=== PATIENT | female | born 1985 | race Caucasian/White ===

== ENCOUNTER 2020-07-05 19:56 | Emergency (ER) | payer OTHER, SELFPAY ==
[2020-07-05 20:00] VITALS: BP 166/89; PULSE 124; TEMP 37.9; O2SAT 94; BMI 42.3
[2020-07-05 20:05] VITALS: O2SAT 94
--- NOTE | 2020-07-05 20:13 | DI.RAD.S_ITS ---
PROCEDURE: XR CHEST 1V INDICATIONS: sob, cough, fever TECHNIQUE: One view of the chest was acquired. COMPARISON: None. FINDINGS: Surgical changes and devices: None. Lungs and pleura: Patchy bilateral airspace ground-glass and consolidative nodular opacities. No pleural effusions or pneumothorax. Mediastinum: Mediastinal contours appear normal. Heart size is normal. Bones and chest wall: No suspicious bony lesions. Overlying soft tissues appear unremarkable. IMPRESSION: Bilateral patchy ground-glass and consolidative consolidative nodular opacities. Findings more pronounced on the right and are most likely reflective of multifocal pneumonia. Follow-up to resolution is recommended. Dictated by: Rene Gray M.D. on 07/05/2020 at 20:59 Approved by: Rene Gray M.D. on 07/05/2020 at 20:59
--- NOTE | 2020-07-05 20:23 | ED_ITS ---
HPI - Chest Pain General Chief Complaint: Chest Pain Stated Complaint: states Covid +, Chest Pain, SOB Time Seen by Provider: 07/05/20 20:03 Source: patient Mode of arrival: Ambulatory Limitations: no limitations History of Present Illness HPI narrative: 34F nonsmoker with a history of anxiety presents with increasing harsh cough and fever of 101F. She started having symptoms on Tuesday and was diagnosed with COVID on Tuesday. She thinks she was probably exposed last week while visiting [place]. She is not dizzy or lightheaded. She's had nausea, and diarrhea, but no vomiting. She has some burning chest pain which flairs up after coughing and mellows out after coughing. She has been taking tylenol and motrin as well as immodium. She is otherwise well. MD complaint: chest pain Onset (ago): day(s) Duration: constant Pain location: substernal Severity: moderate Quality: sharp Pain radiation: none Exacerbating factors: inspiration Associated symptoms: nausea and dyspnea Related Data On Oral Contraceptives: No Previous Rx's Medication Instructions Recorded benzonatate [Tessalon Perles] 100 mg PO TID PRN #14 cap 07/05/20 promethazine-codeine 5 ml PO Q4-6H PRN #473 ml 07/05/20 Allergies Allergy/AdvReac Type Severity Reaction Status Date / Time olanzapine [From Zyprexa] Allergy Verified 07/05/20 20:09 Review of Systems Constitutional Constitutional: Reports chills, Reports fatigue, Reports fever(s), Denies frequent falls, Denies lethargy and Denies weakness Eyes Eyes: Denies change in vision, Denies eye discharge, Denies irritation and Denies loss of vision ENT Ears, Nose, Mouth, and Throat: Denies change in voice, Denies dizziness, Denies neck pain, Denies sore throat and Denies throat swelling Cardiovascular Cardiovascular: Reports chest pain, Denies irregular heart rhythm, Denies li ghtheadedness, Denies palpitations, Reports dyspnea, Denies dyspnea on exertion and Denies orthopnea Respiratory Respiratory: Reports cough, Reports dyspnea, Denies dyspnea on exertion and Denies wheezing Gastrointestinal Gastrointestinal: Denies abdominal pain, Denies change in bowel habits, Reports diarrhea, Reports nausea and Denies vomiting Musculoskeletal Musculoskeletal: Denies neck pain and Denies numbness Integumentary/Breasts Skin/Breast: Denies pruritus, Denies erythema, Denies rash and Denies wounds Neurologic Neurologic: Denies behavioral changes, Denies confusion, Denies dizziness, Denies frequent falls, Denies loss of vision, Denies numbness and Denies weakness Psychiatric Psychiatric: Denies anxiety, Denies behavioral changes, Denies confusion, Denies depression, Denies homicidal ideation and Denies suicidal ideation Endocrine Endocrine: Reports fatigue, Denies flushing and Denies palpitations Hematologic/Lymphatic Hematologic/Lymphatic: Denies easy bruising Allergic/Immunologic Allergic/Immunologic: Denies urticaria, Denies throat swelling and Denies wheezing Patient History Social History Smoking Status: Unknown if ever smoked Smoking Status: Unknown if ever smoked alcohol intake frequency: holidays/special occasions only Substance Use Type: does not use Exam Narrative Exam Narrative: GENERAL: [34] year old patient appears stated age. Well- nourished, well-developed patient, in mild distress. HEAD: Atraumatic. Normocephalic. EYES: Pupils equal round and reactive. Extraocular motions intact. No scleral icterus. No injection or drainage. ENT: Nose without bleeding, purulent drainage. Throat without erythema, tonsillar hypertrophy or exudate. Airway patent. NECK: Trachea midline. Non tender CARDIOVASCULAR: Tachycardic but regular rhythm without murmurs, gallops, or rubs. RESPIRATORY: Crackles in B/L bases. R>L. No use of accessory muscles or intercostals. No conversational dyspnea or other evidence of increased work of breathing. RA SpO2 92-95% GASTROINTESTINAL: Abdomen soft, non-tender, nondistended. EXTREMITIES: No edema or joint tenderness. BACK: Nontender without deformity or crepitance. No flank tenderness. NEURO: AOx3. SKIN: No rash or erythema of visible areas Initial Vital Signs Initial Vital Signs: Vital Signs Temperature 100.2 F H 07/05/20 20:00 Pulse Rate 124 H 07/05/20 20:00 Blood Pressure 166/89 H 07/05/20 20:00 Pulse Oximetry 94 07/05/20 20:00 Course Orders Ordered: ED Orders 07/05/20 20:13 XR chest 1V Stat 07/05/20 20:14 C-Reactive Protein Quant Stat Complete Blood Count AUTO DIFF Stat D Dimer Stat Ferritin Stat Lactate (Lactic Acid) Stat Lactate Dehydrogenase Stat Procalcitonin Stat EKG-12 Lead Stat 07/05/20 20:45 Blood Culture Stat Acetaminophen/Codeine Phosphate (Acetaminophen/Codeine Soln 5 Ml Solution) 10 ml PO NOW ONE Stop: 07/05/20 21:54 Discontinued Medications Sodium Chloride (Normal Saline 0.9%) 500 mls @ 1,000 mls/hr IV BOLUS ONE Stop: 07/05/20 21:29 Last Admin: 07/05/20 21:12 Dose: 1,000 mls/hr Documented by: KATHE Ketorolac Tromethamine (Ketorolac 60 Mg/2 Ml Vial) 15 mg IV NOW ONE Stop: 07/05/20 20:41 Last Admin: 07/05/20 20:54 Dose: 15 mg Documented by: KATHE Vital Signs Vital signs: Vital Signs - 8 hr 07/05/20 20:00 07/05/20 20:05 07/05/20 21:03 Temperature 100.2 F H Pulse Rate 124 H 110 H Respiratory Rate 19 Blood Pressure 166/89 H 118/63 Pulse Oximetry 94 94 93 07/05/20 21:30 Temperature Pulse Rate 98 H Respiratory Rate 21 Blood Pressure 109/65 Pulse Oximetry 92 MDM - Chest Pain Lab Data Result diagrams: 07/05/20 20:14 Labs: Lab Results 07/05/20 07/05/20 07/05/20 Range/Units 20:14 20:14 20:14 WBC 5.8 (4.5-11.0) X10^3/uL RBC 4.88 (4.0-5.2) X10^6/uL Hgb 14.6 (12.0-16.0) g/dL Hct 42.6 (36-46) % MCV 87.2 (80-100) fL MCH 29.8 (26-34) PG MCHC 34.2 (30-36) % RDW 12.9 (11.6-14.8) % Plt Count 168 (150-400) X10^3/uL Neut % (Auto) 63.1 (50-75) % Lymph % (Auto) 29.6 (25-40) % [place] % (Auto) 6.8 (3-14) % Eos % (Auto) 0.1 L (2-4) % Baso % (Auto) 0.4 (0-2) % Neut # (Auto) 3600 (8199-8484) /uL Lymph # (Auto) 1700 (8916-5788) /uL [place] # (Auto) 400 (0-900) /uL Eos # (Auto) 0 (0-450) /uL Baso # (Auto) 0 (0-100) /uL D-Dimer 384 H (<230) ng/mL Lactate 1.9 (0.7-2.1) mmol/L Ferritin (6-137) ng/mL Lactate Dehydrogenase (313-618) U/L C-Reactive Protein (<1.0) mg/dL Procalcitonin (<0.5) ng/mL 07/05/20 07/05/20 Range/Units 20:14 20:14 WBC (4.5-11.0) X10^3/uL RBC (4.0-5.2) X10^6/uL Hgb (12.0-16.0) g/dL Hct (36-46) % MCV (80-100) fL MCH (26-34) PG MCHC (30-36) % RDW (11.6-14.8) % Plt Count (150-400) X10^3/uL Neut % (Auto) (50-75) % Lymph % (Auto) (25-40) % [place] % (Auto) (3-14) % Eos % (Auto) (2-4) % Baso % (Auto) (0-2) % Neut # (Auto) (7443-1119) /uL Lymph # (Auto) (2906-2184) /uL [place] # (Auto) (0-900) /uL Eos # (Auto) (0-450) /uL Baso # (Auto) (0-100) /uL D-Dimer (<230) ng/mL Lactate (0.7-2.1) mmol/L Ferritin 347 H (6-137) ng/mL Lactate Dehydrogenase 1164 H (313-618) U/L C-Reactive Protein 7.6 H (<1.0) mg/dL Procalcitonin 0.06 (<0.5) ng/mL Point of Care Testing Test Results Negative Urine Dip Bedside Urine Glucose Negative Bedside Urine Bilirubin - Negative Bedside Urine Ketone - Negative Urine Specific Agency 1.015 Bedside Urine Occult Blood - Negative Bedside Urine pH 6 Bedside Urine Protein - Negative Bedside Urine Urobilinogen - Negative Bedside Urine Nitrite - Negative Bedside Urine Leukocytes - Negative Esterase Imaging Data Chest x-ray: Radiologist's Impression: Chart Viewer Diagnostics DATE TYPE STATUS REF RANGE/AUTHOR Hx Today 20:13 Rene Gray Jessica P 34, F010/12/1985 [facility], [facility] ED R04 170.18cm 122.47kg BMI: 42.3kg/m? Chest Pain Search Chart No Data to Display No Data to Display No Data to Display Today 21:03 Sarah Weems P 34 F [address] [id number] ReportSigned Patient: Sarah Weems PMR#: [id number]: 1985Acct:[id number]/Sex: 34 / FDate of Service: 07/05/20Loc: EDAccession Number: [id number] Procedure: XR chest 1V Ordering Provider: John Olmos D.O. PROCEDURE: XR CHEST 1V INDICATIONS: sob, cough, fever TECHNIQUE: One view of the chest was acquired. COMPARISON: None. FINDINGS: Surgical changes and devices: None. Lungs and pleura: Patchy bilateral airspace ground-glass and consolidative nodular opacities. No pleural effusions or pneumothorax. Mediastinum: Mediastinal contours appear normal. Heart size is normal. Bones and chest wall: No suspicious bony lesions. Overlying soft tissues appear unremarkable. IMPRESSION: Bilateral patchy ground-glass and consolidative consolidative nodular opacities. Findings more pronounced on the right and are most likely reflective of multifocal pneumonia. Follow-up to resolution is recommended. Dictated by: Rene Gray M.D. on 07/05/2020 at 20:59 Approved by: Rene Gray M.D. on 07/05/2020 at 20:59 [facility] Narrative Medical decision making narrative: Patient with known COVID presents with cough and shortness of breath. At no point is her pulse ox below 92%. She does not demonstrate any significant work of breathing. Other diagnoses such as bacteri al pneumonia and pulmonary embolism considered but thought unlikely given labs, imaging. Her D-dimer slightly elevated, however is below the cutoff for PE of 500. Bacterial pneumonia considered but thought unlikely given presentation and negative procalcitonin. Return precautions given and questions answered to her apparent satisfaction Discharge Plan Departure Patient Disposition: Home Clinical Impression: Pneumonia due to COVID-19 virus Instructions: Coronavirus Disease 2019 Activity Restrictions/Additional Instructions: *You have been diagnosed with [ COVID-19] *What to do: * per recommendations from the CDC and the [facility] Department of Health * stay home except to get medical care. Restrict activities outside your home, except for getting medical care. Do not go to work, school, or public areas. Avoid using public transportation, ride sharing, or taxis. * separate yourself from other people in your home. * call ahead before visiting your doctor * Wear a facemask * Cover your coughs and sneezes * Clean your hands often * Avoid sharing household items * Clean all high-touch services every day * Monitor your symptoms and seek prompt medical attention if your illness is worsening, particularly with difficulty in breathing. You may discontinue your isolation when: 1. You have been fever-free for at least 24 hours without the use of fever reducing medication, AND 2. Your symptoms are getting better 3. At least 10 days have passed since symptoms first appeared Individuals with laboratory confirmed COVID-19 who have not had any symptoms may discontinue home isolation when at least 10 days have passed since the date of their first COVID-19 diagnostic test and have had no subsequent illness Prescriptions: New promethazine-codeine 6.25-10 mg/5 mL syrup 5 ml PO Q4-6H PRN (Reason: cough) Qty: 473 RF: 0 benzonatate [Tessalon Perles] 100 mg capsule 100 mg PO TID PRN (Reason: cough) Qty: 14 RF: 0
[2020-07-05 20:43] LABS: Add Manual Diff / Slide Review NO; Basophils Absolute Auto 0 /uL (0-100); Basophils Percent Auto 0.4 % (0-2); Eosinophils Absolute Auto 0 /uL (0-450); Eosinophils Percent Auto 0.1 % (2-4); Hematocrit 42.6 % (36-46); Hemoglobin 14.6 g/dL (12.0-16.0); Lactate (Lactic Acid) 1.9 mmol/L (0.7-2.1); Lymphocytes Absolute Auto 1700 /uL (1100-4500); Lymphocytes Percent Auto 29.6 % (25-40); Mean Corpuscular HGB Conc 34.2 % (30-36); Mean Corpuscular Hemoglobin 29.8 PG (26-34); Mean Corpuscular Volume 87.2 fL (80-100); Monocytes Absolute Auto 400 /uL (0-900); Monocytes Percent Auto 6.8 % (3-14); Neutrophils Absolute Auto 3600 /uL (1500-7000); Neutrophils Percent Auto 63.1 % (50-75); Platelet Count 168 X10^3/uL (150-400); Red Blood Cell Count 4.88 X10^6/uL (4.0-5.2); Red Cell Distribution Width 12.9 % (11.6-14.8); White Blood Cell Count 5.8 X10^3/uL (4.5-11.0)
[2020-07-05 20:46] LABS: C-Reactive Protein Quant 7.6 mg/dL (<1.0); Lactate Dehydrogenase 1164 U/L (313-618)
[2020-07-05 20:49] LABS: D Dimer 384 ng/mL (<230)
[2020-07-05] MEDS: KETOROLAC 60 MG/2 ML VIAL 15 MG IV (20:54)
[2020-07-05 21:03] VITALS: BP 118/63; PULSE 110; RESP 19; O2SAT 93
[2020-07-05] MEDS: SODIUM CHLORIDE 0.9% 500 ML 1000 ML IV (21:12)
[2020-07-05 21:27] LABS: Ferritin 347 ng/mL (6-137)
[2020-07-05 21:30] VITALS: BP 109/65; PULSE 98; RESP 21; O2SAT 92
[2020-07-05 21:44] LABS: Procalcitonin 0.06 ng/mL (<0.5)
[2020-07-05 22:00] VITALS: BP 104/63; PULSE 96; RESP 18; O2SAT 93
[2020-07-05] MEDS: ACETAMINOPHEN/CODEINE SOLN 5 ML SOLUTION 10 ML PO (22:06)
== END 2020-07-05 22:15 | disposition home or self-care (01) ==
PROVIDERS: Emergency Provider Emergency Medicine
DX: U07.1 COVID-19 (principal); J12.82 Pneumonia due to coronavirus disease 2019; R07.9 Chest pain, unspecified; R50.9 Fever, unspecified; R05 Cough; R11.0 Nausea; R19.7 Diarrhea, unspecified
CPT/HCPCS: 36415; 71045; 81003; 81025; 82728; 83605; 83615; 84145; 85025; 85379; 86140; 87040; 93005; 93010; 96361; 96374; 99285; J1885

== ENCOUNTER 2020-07-07 12:55 | Inpatient (IN) | payer OTHER, SELFPAY ==
[2020-07-07] VITALS (54 sets, daily range): BP systolic 107–135; BP diastolic 62–79; PULSE 97–126; RESP 12–47; TEMP 36.3–38.1; O2SAT 75–100; BMI 44.0
--- NOTE | 2020-07-07 13:10 | DI.RAD.S_ITS ---
PROCEDURE: XR CHEST 1V INDICATIONS: covid + TECHNIQUE: One view of the chest was acquired. COMPARISON: [facility], CR, XR CHEST 1V, 07/05/2020, 20:35. FINDINGS: Surgical changes and devices: None. Lungs and pleura: Lungs are unchanged, with moderately severe patchy bilateral alveolar infiltration pattern.. No pleural effusions or pneumothorax. Mediastinum: Mediastinal contours appear normal. Heart size is normal. Bones and chest wall: No suspicious bony lesions. Overlying soft tissues appear unremarkable. IMPRESSION: No appreciable change in pattern of atypical pneumonia from the comparison initial study 07/05/20. Moderately severe pneumonitis pattern. Dictated by: Bryn Mcdonough M.D. on 07/07/2020 at 14:49 Approved by: Bryn Mcdonough M.D. on 07/07/2020 at 14:49
[2020-07-07 13:25] LABS: Add Manual Diff / Slide Review NO; Basophils Absolute Auto 0 /uL (0-100); Basophils Percent Auto 0.1 % (0-2); Eosinophils Absolute Auto 0 /uL (0-450); Eosinophils Percent Auto 0.1 % (2-4); Hematocrit 41.3 % (36-46); Hemoglobin 14.2 g/dL (12.0-16.0); Lymphocytes Absolute Auto 1400 /uL (1100-4500); Lymphocytes Percent Auto 13.7 % (25-40); Mean Corpuscular HGB Conc 34.5 % (30-36); Mean Corpuscular Hemoglobin 29.9 PG (26-34); Mean Corpuscular Volume 86.7 fL (80-100); Monocytes Absolute Auto 300 /uL (0-900); Monocytes Percent Auto 2.9 % (3-14); Neutrophils Absolute Auto 8600 /uL (1500-7000); Neutrophils Percent Auto 83.2 % (50-75); Platelet Count 197 X10^3/uL (150-400); Red Blood Cell Count 4.76 X10^6/uL (4.0-5.2); Red Cell Distribution Width 13.1 % (11.6-14.8); White Blood Cell Count 10.4 X10^3/uL (4.5-11.0)
--- NOTE | 2020-07-07 13:34 | ED_ITS ---
HPI - SOB/Dyspnea General Chief Complaint: Shortness of Breath/Dyspnea Stated Complaint: SOB, COVID + Time Seen by Provider: 07/07/20 13:09 Source: patient Mode of arrival: Ambulatory Limitations: no limitations History of Present Illness HPI Narrative: Patient is a 34-year-old female with known positive COVID is pr esenting today with increasing shortness of breath. She was diagnosed on 07/03/2019 at [facility]. She arrived from [place] to visit her sister last week. She has had fever of 101 cough. She was evaluated here on 07/05/2020 when she was experiencing some chest discomfort and cough. Her oxygen level was within normal limits and she was discharged home. This morning she noticed that her O2 on her home pulse oximeter was significantly low rate previously it had been 89%. She has overall extreme fatigue and shortness of breath. O2 on room air is 80%. She denies any loss of taste or smell. MD Complaint: shortness of breath and cough Onset (ago): day(s) Context: recent illness Related Data Previous Rx's Medication Instructions Recorded benzonatate [Tessalon Perles] 100 mg PO TID PRN #14 cap 07/05/20 promethazine-codeine 5 ml PO Q4-6H PRN #473 ml 07/05/20 Allergies Allergy/AdvReac Type Severity Reaction Status Date / Time olanzapine [From Zyprexa] Allergy Verified 07/05/20 20:09 Review of Systems Review of Systems ROS Unobtainable: All systems reviewed & are unremarkable except as noted in HPI and below Constitutional Constitutional: Reports fatigue, Reports fever(s), Denies frequent falls and Denies headache(s) Eyes Eyes: Denies change in vision, Denies eye discharge, Denies irritation and Denies loss of vision ENT Ears, Nose, Mouth, and Throat: Denies change in voice, Denies headache(s), Denies neck pain and Denies sore throat Cardiovascular Cardiovascular: Reports chest pain, Reports dyspnea and Reports dyspnea on exertion Respiratory Respiratory: Reports as per HPI, Reports cough, Reports dyspnea and Reports dyspnea on exertion Gastrointestinal Gastrointestinal: Denies abdominal pain, Denies change in bowel habits, Denies diarrhea, Denies nausea and Denies vomiting Musculoskeletal Musculoskeletal: Denies arthralgias, Denies back pain, Reports myalgias and Denies neck pain Integumentary/Breasts Skin/Breast: Denies pruritus, Denies erythema, Denies rash and Denies wounds Neurologic Neurologic: Denies frequent falls, Denies headache(s) and Denies loss of vision Endocrine Endocrine: Reports fatigue Patient History Medical History Patient denies medical problems Seasonal asthma Social History Smoking Status: Unknown if ever smoked Smoking Status: Unknown if ever smoked alcohol intake frequency: holidays/special occasions only Substance Use Type: does not use Exam Initial Vital Signs Initial Vital Signs: Vital Signs Temperature 100.5 F H 07/07/20 13:00 Pulse Rate 126 H 07/07/20 13:00 Respiratory Rate 32 H 07/07/20 13:00 Blood Pressure 120/65 07/07/20 13:00 Pulse Oximetry 78 L 07/07/20 13:00 GENERAL: Alert overweight young female appears weak and fatigued and in no acute distress. HEENT: Head atraumatic,EOMI, pupils reactive, face symmetric, moist mucous membranes CARDIOVASCULAR: Regular rate and rhythm without murmurs, rubs or gallops. RESPIRATORY: Breath sounds equal bilaterally, no wheezes rales or rhonchi. ABDOMEN: Soft, nontender. Normoactive bowel sounds all 4 quadrants. No gu arding or rebound. EXTREMITIES: Normal range of motion, no clubbing or edema. Neurovascularly intact NEUROLOGICAL: Alert and oriented x4.Normal gait and speech. Cranial nerves II through XII grossly intact. SKIN: Warm, dry, no laceration, no petechiae, no rashes or lesions. Course Orders Ordered: ED Orders 07/07/20 13:09 High flow/High humidity nasal STAT 07/07/20 13:10 XR chest 1V Stat EKG-12 Lead Stat 07/07/20 13:15 C-Reactive Protein Quant Stat Complete Blood Count AUTO DIFF Stat Comprehensive Metabolic Panel Stat D Dimer Stat Ferritin Stat Lactate (Lactic Acid) Stat Lactate Dehydrogenase Stat NT-proBNP (BNP-Adult 18+) Stat Test Serum,Qual Stat Procalcitonin Stat Troponin & CK Cardiac Panel Stat 07/07/20 13:31 Arterial Blood Gas Stat 07/07/20 13:53 Respiratory Panel (Film Array) Stat Acetaminophen (Acetaminophen 325 Mg Tablet) 650 mg PO Q6HR PRN PRN Reason: Fever/Mild Pain (1-3) Albuterol (Albuterol Hfa Mdi 60 Puff/8 Gm Inhaler) 1 puff INH RTQ4HR PRN PRN Reason: Shortness Of Breath Dexamethasone (Dexamethasone 10 Mg/Ml Vial) 6 mg IV DAILY [facility] Enoxaparin Sodium (Enoxaparin 40 Mg/0.4 Ml Syringe) 40 mg SUBCUT BID [facility] Remdesivir 100 mg/ Sodium (Chloride) 250 mls @ 250 mls/hr IV DAILY@1400 [facility] Pantoprazole Sodium (Pantoprazole 40 Mg Vial) 40 mg IV DAILY [facility] Discontinued Medications Dexamethasone (Dexamethasone 10 Mg/Ml Vial) 10 mg IV NOW ONE Stop: 07/07/20 14:04 Last Admin: 07/07/20 14:25 Dose: 10 mg Documented by: CHARLIE Remdesivir 200 mg/ Sodium (Chloride) 250 mls @ 250 mls/hr IV NOW ONE Stop: 07/07/20 14:04 Last Infusion: 07/07/20 15:49 Dose: 0 mls/hr Documented by: Admin: 07/07/20 14:25 Dose: 250 mls/hr Documented by: CHARLIE Vital Signs Vital signs: Vital Signs - 8 hr 07/07/20 13:00 07/07/20 13:20 07/07/20 13:30 Temperature 100.5 F H Pulse Rate 126 H 123 H 120 H Respiratory Rate 32 H 24 14 Blood Pressure 120/65 121/70 Pulse Oximetry 78 L 75 L 97 07/07/20 13:41 07/07/20 13:42 07/07/20 13:45 Temperature Pulse Rate 126 H 121 H 123 H Respiratory Rate 32 H 28 H 16 Blood Pressure 120/65 124/76 Pulse Oximetry 78 L 98 97 07/07/20 14:00 07/07/20 14:15 Temperature Pulse Rate 115 H 115 H Respiratory Rate 12 13 Blood Pressure 118/70 118/70 Pulse Oximetry 98 96 MDM - SOB/Dyspnea Lab Data Attestation: I reviewed the patient's lab results. Result diagrams: 07/07/20 13:15 07/07/20 13:15 Labs: Lab Results 07/07/20 07/07/20 07/07/20 Range/Units 13:15 13:15 13:15 WBC 10.4 D (4.5-11.0) X10^3/uL RBC 4.76 (4.0-5.2) X10^6/uL Hgb 14.2 (12.0-16.0) g/dL Hct 41.3 (36-46) % MCV 86.7 (80-100) fL MCH 29.9 (26-34) PG MCHC 34.5 (30-36) % RDW 13.1 (11.6-14.8) % Plt Count 197 (150-400) X10^3/uL Neut % (Auto) 83.2 H D (50-75) % Lymph % (Auto) 13.7 L (25-40) % [place] % (Auto) 2.9 L (3-14) % Eos % (Auto) 0.1 L (2-4) % Baso % (Auto) 0.1 (0-2) % Neut # (Auto) 8600 H (9085-3277) /uL Lymph # (Auto) 1400 (0789-4071) /uL [place] # (Auto) 300 (0-900) /uL Eos # (Auto) 0 (0-450) /uL Baso # (Auto) 0 (0-100) /uL D-Dimer 655 H (<230) ng/mL ABG pH (7.35-7.45) ABG pCO2 (35-45) mmHg ABG pO2 (80-100) mmHg ABG HCO3 (22-26) mmol/L ABG Total CO2 (21-31) mmol/L ABG O2 Saturation (95-100) % ABG Base Excess (-2-2) mmol/L FiO2 Sodium (137-145) mmol/L Potassium (3.4-5.1) mmol/L Chloride (98-107) mmol/L Carbon Dioxide (22-32) mmol/L BUN (7-17) mg/dL Creatinine (0.52-1.04) mg/dL Estimated GFR (>60) mL/min BUN/Creatinine Ratio (6-22) Glucose (70-100) mg/dL Lactate (0.7-2.1) mmol/L Calcium (8.4-10.2) mg/dL Ferritin (6-137) ng/mL Total Bilirubin (0.2-1.3) mg/dL AST (14-36) IU/L ALT (<35) IU/L Alkaline Phosphatase (38-126) U/L Lactate Dehydrogenase (313-618) U/L Total Creatine Kinase (30-135) U/L CK-MB (CK-2) CK-MB (CK-2) Rel Index Troponin I (0.01-0.034) ng/mL C-Reactive Protein (<1.0) mg/dL NT-Pro-B Natriuret Pep (<125) pg/mL Total Protein (6.3-8.2) g/dL Albumin (3.5-5.0) g/dL Globulin (1.7-4.1) g/dL Albumin/Globulin Ratio (1.0-2.8) Procalcitonin 0.09 (<0.5) ng/mL Serum , Qual (Negative) Chlamy pneumoniae PCR (Not Detect) Adenovirus (PCR) (Not Detect) B. pertussis DNA (PCR) (Not Detecte) B.parapertussis DNA PCR (Not Detecte) Coronavirus OC43 (PCR) (Not Detect) Coronavirus HKU1 (PCR) (Not Detect) Coronavirus 229E (PCR) (Not Detect) SARS-CoV-2 (PCR) (Not Detecte) Coronavirus NL63 (PCR) (Not Detect) Human Metapneumovir PCR (Not Detect) Influenza Type A (PCR) (Not Detect) Influenza Type B (PCR) (Not Detect) M. pneumoniae (PCR) (Not Detect) Parainfluenza 1 (PCR) (Not Detect) Parainfluenza 2 (PCR) (Not Detect) Parainfluenza 3 (PCR) (Not Detect) Parainfluenza 4 (PCR) (Not Detect) RSV (PCR) (Not Detect) Entero/Rhino (PCR) (Not Detect) 07/07/20 07/07/20 07/07/20 Range/Units 13:15 13:15 13:15 WBC (4.5-11.0) X10^3/uL RBC (4.0-5.2) X10^6/uL Hgb (12.0-16.0) g/dL Hct (36-46) % MCV (80-100) fL MCH (26-34) PG MCHC (30-36) % RDW (11.6-14.8) % Plt Count (150-400) X10^3/uL Neut % (Auto) (50-75) % Lymph % (Auto) (25-40) % [place] % (Auto) (3-14) % Eos % (Auto) (2-4) % Baso % (Auto) (0-2) % Neut # (Auto) (5929-4909) /uL Lymph # (Auto) (9082-5812) /uL [place] # (Auto) (0-900) /uL Eos # (Auto) (0-450) /uL Baso # (Auto) (0-100) /uL D-Dimer (<230) ng/mL ABG pH (7.35-7.45) ABG pCO2 (35-45) mmHg ABG pO2 (80-100) mmHg ABG HCO3 (22-26) mmol/L ABG Total CO2 (21-31) mmol/L ABG O2 Saturation (95-100) % ABG Base Excess (-2-2) mmol/L FiO2 Sodium 135 L (137-145) mmol/L Potassium 3.5 (3.4-5.1) mmol/L Chloride 97 L (98-107) mmol/L Carbon Dioxide 28 (22-32) mmol/L BUN 3 L (7-17) mg/dL Creatinine 0.47 L (0.52-1.04) mg/dL Estimated GFR > 60.0 (>60) mL/min BUN/Creatinine Ratio 6.4 (6-22) Glucose 128 H (70-100) mg/dL Lactate 2.3 H (0.7-2.1) mmol/L Calcium 8.6 (8.4-10.2) mg/dL Ferritin 519 H (6-137) ng/mL Total Bilirubin 0.6 (0.2-1.3) mg/dL AST 91 H (14-36) IU/L ALT 48 H (<35) IU/L Alkaline Phosphatase 90 (38-126) U/L Lactate Dehydrogenase 1816 H D (313-618) U/L Total Creatine Kinase 51 (30-135) U/L CK-MB (CK-2) TNP CK-MB (CK-2) Rel Index TNP Troponin I < 0.012 (0.01-0.034) ng/mL C-Reactive Protein 18.7 H (<1.0) mg/dL NT-Pro-B Natriuret Pep 57 (<125) pg/mL Total Protein 7.2 (6.3-8.2) g/dL Albumin 3.8 (3.5-5.0) g/dL Globulin 3.4 (1.7-4.1) g/dL Albumin/Globulin Ratio 1.1 (1.0-2.8) Procalcitonin (<0.5) ng/mL Serum , Qual Negative (Negative) Chlamy pneumoniae PCR (Not Detect) Adenovirus (PCR) (Not Detect) B. pertussis DNA (PCR) (Not Detecte) B.parapertussis DNA PCR (Not Detecte) Coronavirus OC43 (PCR) (Not Detect) Coronavirus HKU1 (PCR) (Not Detect) Coronavirus 229E (PCR) (Not Detect) SARS-CoV-2 (PCR) (Not Detecte) Coronavirus NL63 (PCR) (Not Detect) Human Metapneumovir PCR (Not Detect) Influenza Type A (PCR) (Not Detect) Influenza Type B (PCR) (Not Detect) M. pneumoniae (PCR) (Not Detect) Parainfluenza 1 (PCR) (Not Detect) Parainfluenza 2 (PCR) (Not Detect) Parainfluenza 3 (PCR) (Not Detect) Parainfluenza 4 (PCR) (Not Detect) RSV (PCR) (Not Detect) Entero/Rhino (PCR) (Not Detect) 07/07/20 07/07/20 Range/Units 13:31 13:53 WBC (4.5-11.0) X10^3/uL RBC (4.0-5.2) X10^6/uL Hgb (12.0-16.0) g/dL Hct (36-46) % MCV (80-100) fL MCH (26-34) PG MCHC (30-36) % RDW (11.6-14.8) % Plt Count (150-400) X10^3/uL Neut % (Auto) (50-75) % Lymph % (Auto) (25-40) % [place] % (Auto) (3-14) % Eos % (Auto) (2-4) % Baso % (Auto) (0-2) % Neut # (Auto) (0795-3532) /uL Lymph # (Auto) (3017-9544) /uL [place] # (Auto) (0-900) /uL Eos # (Auto) (0-450) /uL Baso # (Auto) (0-100) /uL D-Dimer (<230) ng/mL ABG pH 7.49 H (7.35-7.45) ABG pCO2 34.1 L (35-45) mmHg ABG pO2 70 L (80-100) mmHg ABG HCO3 26 (22-26) mmol/L ABG Total CO2 27 (21-31) mmol/L ABG O2 Saturation 95 (95-100) % ABG Base Excess 2.0 (-2-2) mmol/L FiO2 44 Sodium (137-145) mmol/L Potassium (3.4-5.1) mmol/L Chloride (98-107) mmol/L Carbon Dioxide (22-32) mmol/L BUN (7-17) mg/dL Creatinine (0.52-1.04) mg/dL Estimated GFR (>60) mL/min BUN/Creatinine Ratio (6-22) Glucose (70-100) mg/dL Lactate (0.7-2.1) mmol/L Calcium (8.4-10.2) mg/dL Ferritin (6-137) ng/mL Total Bilirubin (0.2-1.3) mg/dL AST (14-36) IU/L ALT (<35) IU/L Alkaline Phosphatase (38-126) U/L Lactate Dehydrogenase (313-618) U/L Total Creatine Kinase (30-135) U/L CK-MB (CK-2) CK-MB (CK-2) Rel Index Troponin I (0.01-0.034) ng/mL C-Reactive Protein (<1.0) mg/dL NT-Pro-B Natriuret Pep (<125) pg/mL Total Protein (6.3-8.2) g/dL Albumin (3.5-5.0) g/dL Globulin (1.7-4.1) g/dL Albumin/Globulin Ratio (1.0-2.8) Procalcitonin (<0.5) ng/mL Serum , Qual (Negative) Chlamy pneumoniae PCR Not detected (Not Detect) Adenovirus (PCR) Not detected (Not Detect) B. pertussis DNA (PCR) Not detected (Not Detecte) B.parapertussis DNA PCR Not detected (Not Detecte) Coronavirus OC43 (PCR) Not detected (Not Detect) Coronavirus HKU1 (PCR) Not detected (Not Detect) Coronavirus 229E (PCR) Not detected (Not Detect) SARS-CoV-2 (PCR) Not detected (Not Detecte) Coronavirus NL63 (PCR) Not detected (Not Detect) Human Metapneumovir PCR Not detected (Not Detect) Influenza Type A (PCR) Not detected (Not Detect) Influenza Type B (PCR) Not detected (Not Detect) M. pneumoniae (PCR) Not detected (Not Detect) Parainfluenza 1 (PCR) Not detected (Not Detect) Parainfluenza 2 (PCR) Not detected (Not Detect) Parainfluenza 3 (PCR) Not detected (Not Detect) Parainfluenza 4 (PCR) Not detected (Not Detect) RSV (PCR) Not detected (Not Detect) Entero/Rhino (PCR) Not detected (Not Detect) Imaging Data Chest x-ray: Radiologist's Impression: PROCEDURE: XR CHEST 1V INDICATIONS: covid + TECHNIQUE: One view of the chest was acquired. COMPARISON: [facility], , XR CHEST 1V, 07/05/2020, 20:35. FINDINGS: Surgical changes and devices: None. Lungs and pleura: Lungs are unchanged, with moderately severe patchy bilateral alveolar infiltration pattern.. No pleural effusions or pneumothorax. Mediastinum: Mediastinal contours appear normal. Heart size is normal. Bones and chest wall: No suspicious bony lesions. Overlying soft tissues appear unremarkable. IMPRESSION: No appreciable change in pattern of atypical pneumonia from the comparison initial study 07/05/20. Moderately severe pneumonitis pattern. Dictated by: Bryn Mcdonough M.D. on 07/07/2020 at 14:49 Approved by: Bryn Mcdonough M.D. on 07/07/2020 at 14:49 CT scan - chest: Radiologist's Impression: PROCEDURE: CT ANGIO CHEST PE PROTOCOL INDICATIONS: hypoxic covid TECHNIQUE: After the administration of intravenous contrast, 2 mm thick sections acquired from the pulmonary apices to the posterior costophrenic angles. 3-dimensional maximum intensity projection (MIP) coronal and sagittal reformats were then acquired through the thorax. For radiation dose reduction, the following was used: automated exposure control, adjustment of mA and/or kV according to patient size. COMPARISON: [facility], CR, XR CHEST 1V, 07/07/2020, 13:19. [facility], CR, XR CHEST 1V, 07/05/2020, 20:35. FINDINGS: Image quality: Excellent. Pulmonary arteries: The bolus of the contrast injection is suboptimal. The main pulmonary artery measures approximately 100 Hounsfield units. Pulmonary artery densities are greater than 250 Hounsfield units are considered to be ideal for evaluation of pulmonary embolism. However, no large or central pulmonary emboli are seen on these images. No pulmonary emboli are seen more distally, although sensitivity for detection of such is limited on this study. Lungs and pleura: Significant diffuse bilateral interstitial type infiltrates are seen. No pleural effusions or pneumothorax. Central and peripheral airways are patent. Mediastinum: Heart size is normal, without pericardial effusion. Mild enlargement mediastinal nodes can be seen Thoracic aorta is normal in caliber and enhancement. Esophagus is normal in caliber, without hiatal hernia. Bones and chest wall: No suspicious bony lesions. Ribs and thoracic spine appear intact throughout. Thyroid gland demonstrates no significant abnormality. No axillary or supraclavicular adenopathy. Abdomen: Cholecystectomy clips are seen. Visualized upper abdominal solid organs appear normal in the early arterial phase of enhancement. IMPRESSION: No large or central pulmonary emboli can be seen. Patchy bilateral interstitial infiltrates are seen, which are consistent with the given clinical history of COVID pneumonia. Dictated by: Shantanu Ch M.D. on 07/07/2020 at 14:52 ECG Data Attestation: I personally reviewed and interpreted this ECG as follows: Prior ECG tracings: available for review Interpretation: Sinus tachycardia rate 121 p.r. interval 158 QRS [address] changes MDM Narrative Medical decision making narrative: Patient is known COVID positive now requiring oxygen. She is quite tachycardic with an elevated D-dimer that seems to be ri sing. Concern with recent travel for possible pulmonary embolism. CT is negative for pulmonary embolism. Patient is immediately placed on high-flow nasal cannula which she seems to tolerate well. She is also given remdesivir and dexamethasone. Hospitalist , in ED to seen evaluated patient. Happily accepts patient ICU Critical Care Time Critical Care Time Critical Care Time: Yes Total Critical Care Time: 30 Attestation: The high probability of a clinically significant, sudden or life threatening deterioration of the [cardiovascular] system(s) required my full and direct attention, intervention and personal management. The aggregate critical care time was 30 minutes. This time is in addition to time spent performing reported procedures but includes the following: [x] Data Review and interpretation [x] Patient assessment and monitoring of vital signs [x] Documentation [x] Medication orders and management Discharge Plan Departure Patient Disposition: Admitted As Inpatient Clinical Impression: Pneumonia due to COVID-19 virus Respiratory failure with hypoxia Qualifiers: Chronicity: acute Qualified Code(s): J96.01 - Acute respiratory failure with hypoxia Admit Date/Time: 07/07/20 14:23 Admit Provider: Teddy Hicks
[2020-07-07 13:35] LABS: Fractionated Inspired Oxygen 44; HCO3 ABG 26 mmol/L (22-26); Oxygen Saturation ABG 95 % (95-100); PCO2 ABG 34.1 mmHg (35-45); PO2 ABG 70 mmHg (80-100); TCO2 ABG 27 mmol/L (21-31); pH ABG 7.49 (7.35-7.45)
[2020-07-07 13:37] LABS: D Dimer 655 ng/mL (<230)
[2020-07-07 13:40] LABS: Lactate (Lactic Acid) 2.3 mmol/L (0.7-2.1)
[2020-07-07 13:41] LABS: Alanine Aminotransferase 48 IU/L (<35); Albumin 3.8 g/dL (3.5-5.0); Albumin Globulin Ratio 1.1 (1.0-2.8); Alkaline Phosphatase 90 U/L (38-126); Aspartate Aminotransferase 91 IU/L (14-36); BUN Creatinine Ratio 6.4 (6-22); Bilirubin Total 0.6 mg/dL (0.2-1.3); Blood Urea Nitrogen 3 mg/dL (7-17); Calcium 8.6 mg/dL (8.4-10.2); Carbon Dioxide 28 mmol/L (22-32); Chloride 97 mmol/L (98-107); Creatine Kinase 51 U/L (30-135); Estimated Glomerular Filt Rate > 60.0 mL/min (>60); Globulin 3.4 g/dL (1.7-4.1); Glucose 128 mg/dL (70-100); HEMOLYSIS < 15 (0-50); Lactate Dehydrogenase 1816 U/L (313-618); Potassium 3.5 mmol/L (3.4-5.1); Sodium 135 mmol/L (137-145); Total Protein 7.2 g/dL (6.3-8.2)
[2020-07-07 13:50] LABS: NT-proBNP (BNP-Adult 18+) 57 pg/mL (<125); Troponin I < 0.012 ng/mL (0.01-0.034)
[2020-07-07 13:51] LABS: C-Reactive Protein Quant 18.7 mg/dL (<1.0)
[2020-07-07 13:55] LABS: Procalcitonin 0.09 ng/mL (<0.5)
[2020-07-07 14:13] LABS: Ferritin 519 ng/mL (6-137)
[2020-07-07] MEDS: DEXAMETHASONE 10 MG/ML VIAL IV (14:25)
[2020-07-07] MEDS: REMDESIVIR 200 MG in SODIUM CHLORIDE 0.9% 210 ML 250 ML IV (14:25)
[2020-07-07 14:49] LABS: Pregnancy Test Serum,Qual Negative (Negative)
[2020-07-07 14:56] LABS: Adenovirus Not Detected (Not Detect); B. parapertussis Not Detected (Not Detecte); Bordetella pertussis Not Detected (Not Detecte); Chlamydophila pneumoniae Not Detected (Not Detect); Coronavirus 229E Not Detected (Not Detect); Coronavirus HKU1 Not Detected (Not Detect); Coronavirus NL 63 Not Detected (Not Detect); Coronavirus OC43 Not Detected (Not Detect); Human Metapneumovirus Not Detected (Not Detect); Human Rhinovirus/Enterovirus Not Detected (Not Detect); Influenza A Not Detected (Not Detect); Influenza B Not Detected (Not Detect); Mycoplasma pneumoniae Not Detected (Not Detect); Parainfluenza Virus 1 Not Detected (Not Detect); Parainfluenza Virus 2 Not Detected (Not Detect); Parainfluenza Virus 3 Not Detected (Not Detect); Parainfluenza Virus 4 Not Detected (Not Detect); Respiratory Syncytial Virus Not Detected (Not Detect); SARS- CoV-2 Not Detected (Not Detecte)
--- NOTE | 2020-07-07 15:13 | DI.CT.S_ITS ---
PROCEDURE: CT ANGIO CHEST PE PROTOCOL INDICATIONS: hypoxic covid TECHNIQUE: After the administration of intravenous contrast, 2 mm thick sections acquired from the pulmonary apices to the posterior costophrenic angles. 3-dimensional maximum intensity projection (MIP) coronal and sagittal reformats were then acquired through the thorax. For radiation dose reduction, the following was used: automated exposure control, adjustment of mA and/or kV according to patient size. COMPARISON: [facility], CR, XR CHEST 1V, 07/07/2020, 13:19. [facility], CR, XR CHEST 1V, 07/05/2020, 20:35. FINDINGS: Image quality: Excellent. Pulmonary arteries: The bolus of the contrast injection is suboptimal. The main pulmonary artery measures approximately 100 Hounsfield units. Pulmonary artery densities are greater than 250 Hounsfield units are considered to be ideal for evaluation of pulmonary embolism. However, no large or central pulmonary emboli are seen on these images. No pulmonary emboli are seen more distally, although sensitivity for detection of such is limited on this study. Lungs and pleura: Significant diffuse bilateral interstitial type infiltrates are seen. No pleural effusions or pneumothorax. Central and peripheral airways are patent. Mediastinum: Heart size is normal, without pericardial effusion. Mild enlargement mediastinal nodes can be seen Thoracic aorta is normal in caliber and enhancement. Esophagus is normal in caliber, without hiatal hernia. Bones and chest wall: No suspicious bony lesions. Ribs and thoracic spine appear intact throughout. Thyroid gland demonstrates no significant abnormality. No axillary or supraclavicular adenopathy. Abdomen: Cholecystectomy clips are seen. Visualized upper abdominal solid organs appear normal in the early arterial phase of enhancement. IMPRESSION: No large or central pulmonary emboli can be seen. Patchy bilateral interstitial infiltrates are seen, which are consistent with the given clinical history of COVID pneumonia. Dictated by: Shantanu Ch M.D. on 07/07/2020 at 14:52 Approved by: Shantanu Ch M.D. on 07/07/2020 at 14:54
[2020-07-07 15:23] LABS: Reflexed Lactate in 2 Hours Y
[2020-07-07 16:50] LABS: COVID19 -Nasal RAPID POSITIVE (Negative)
--- NOTE | 2020-07-07 18:05 | PM.HP.1 ---
History of Present Illness History of Present Illness Date Patient Seen: 07/07/20 Time Patient Seen: 15:00 Date of Onset of Symptoms: 07/01/20 Chief complaint: SOB, COVID + Narrative: Ms. Weems is a 34 year old woman with PMH of asthma who presents with hypoxemia and shortness of breath. She has a known positive COVID patient who was diagnosed on July 02, 2020 at [facility]. She is visiting from [place] to visit her sister. She had the test done because she was having a fever to 101 and a cough. She presented to the emergency room on July 05 when she was experiencing chest discomfort and a cough. Her oxygen level was within normal limits and she was discharged home. However she was checking her oxygen at home on a pulse ox and was significantly lower in the 80s. She was also noticing worsening shortness of breath and extreme fatigue. She denies any loss of taste or smell. She has been having diarrhea. She has some slight amount of sputum production. He is not having vomiting. She is not having any muscle aches. She is not having any chest pain. She had been taking Tessalon Perles and codeine for her cough at home. The emergency room workup was done she was initially noted to be febrile to a temperature of a 100.5? heart rate was in the 120s, respiratory rate was in the low 30s, blood pressure was in the 120s over 60s, and sats were initially in the 70s. She was put on oxygen and was desatting still on nasal cannula so was placed on high-flow nasal cannula. Imaging was consistent with a pneumonia. Labs were done and were notable for a white count of 10.4, 83% neutrophils and 13.7% lymphs, D-dimer was 655, procalcitonin 0.09, sodium 135 creatinine 0.47, lactate 2.3, AST 91 ALT 48, LDH 1816, CK 51, troponin less than assay, CRP 18.7, and her initial ABG was done on 7 L nasal cannula showed a pH is 7.49 PaO2 of 70 bicarb 26 CO2 of 27. She was initially placed on 100% FiO2 and 50 L, this was able to be weaned down in the ER to 80%. She was ordered for dexamethasone and remdesivir she is admitted for 3 further treatment and evaluation Patient History Medical History Patient denies medical problems Seasonal asthma Family & Social History Safety & Behavioral: Feels Safe in Current Yes Environment Been Physically Hurt or No Threatened By a Person Tobacco & Substance use: Smoking Status Unknown if ever smoked alcohol intake frequency holiday/special occasion Substance Use Type does not use Meds Home Medications and Allergies Home Medications Medication Instructions Recorded Confirmed Type benzonatate [Tessalon Perles] 100 mg PO TID PRN #14 cap 07/05/20 Rx promethazine-codeine 5 ml PO Q4-6H PRN #473 ml 07/05/20 Rx Allergies Allergy/AdvReac Type Severity Reaction Status Date / Time olanzapine [From Zyprexa] Allergy Verified 07/05/20 20:09 Review of Systems Review of Systems Narrative: 14 systems reviewed and negative aside from what is noted in HPI. Exam Vital Signs (past 8 hours): - 07/07/20 13:00 07/07/20 13:20 07/07/20 13:30 Temperature 100.5 F H Pulse Rate 126 H 123 H 120 H Respiratory Rate 32 H 24 14 Blood Pressure 120/65 121/70 Pulse Oximetry 78 L 75 L 97 07/07/20 13:41 07/07/20 13:42 07/07/20 13:45 Temperature Pulse Rate 126 H 121 H 123 H Respiratory Rate 32 H 28 H 16 Blood Pressure 120/65 124/76 Pulse Oximetry 78 L 98 97 07/07/20 14:00 07/07/20 14:15 07/07/20 14:30 Temperature Pulse Rate 115 H 115 H 104 H Respiratory Rate 12 13 24 Blood Pressure 118/70 118/70 115/75 Pulse Oximetry 98 96 98 07/07/20 14:45 07/07/20 15:00 07/07/20 15:15 Temperature Pulse Rate 104 H 108 H 105 H Respiratory Rate 24 26 H 26 H Blood Pressure 122/79 127/79 122/68 Pulse Oximetry 96 96 98 07/07/20 15:30 07/07/20 15:45 07/07/20 15:46 Temperature Pulse Rate 105 H 105 H 106 H Respiratory Rate 24 22 22 Blood Pressure 124/74 107/62 Pulse Oximetry 99 100 99 07/07/20 16:00 07/07/20 16:15 07/07/20 16:30 Temperature 99.2 F 97.3 F L Pulse Rate 107 H 106 H 115 H Respiratory Rate 15 24 18 Blood Pressure 117/65 120/64 108/74 Pulse Oximetry 97 98 93 07/07/20 16:40 07/07/20 16:45 07/07/20 17:06 Temperature Pulse Rate 108 H 108 H 119 H Respiratory Rate 17 18 14 Blood Pressure 108/74 Pulse Oximetry 91 94 94 07/07/20 17:10 Temperature Pulse Rate Respiratory Rate Blood Pressure Pulse Oximetry 94 Fraction of Inspired Oxygen 90 Oxygen Delivery Method Heated High Flow Oxygen Flow Rate 55 Narrative Exam Narrative: GEN: comfortable, appears in mild respiratory distress HEENT: moist mucous membranes, trachea midline EYES: PERRLA CV: tachycardic with no murmurs PULM: coarse breath sounds bilaterally, with poor air movement GI: soft, nontender, nondistended, no organomegaly noted, normal bowel sounds SKIN: no rashes appreciated NEURO: awake and alert and oriented, moving all extremities grossly PSYCH: pleasant, but appears fatigued Objective Labs Result Diagrams: 07/07/20 13:15 07/07/20 13:15 Labs: Laboratory Results - last 24 hr 07/07/20 07/07/20 07/07/20 13:15 13:15 13:15 WBC 10.4 D RBC 4.76 Hgb 14.2 Hct 41.3 MCV 86.7 MCH 29.9 MCHC 34.5 RDW 13.1 Plt Count 197 Neut % (Auto) 83.2 H D Lymph % (Auto) 13.7 L [place] % (Auto) 2.9 L Eos % (Auto) 0.1 L Baso % (Auto) 0.1 Neut # (Auto) 8600 H Lymph # (Auto) 1400 [place] # (Auto) 300 Eos # (Auto) 0 Baso # (Auto) 0 D-Dimer 655 H ABG pH ABG pCO2 ABG pO2 ABG HCO3 ABG Total CO2 ABG O2 Saturation ABG Base Excess FiO2 Sodium Potassium Chloride Carbon Dioxide BUN Creatinine Estimated GFR BUN/Creatinine Ratio Glucose Lactate Calcium Ferritin Total Bilirubin AST ALT Alkaline Phosphatase Lactate Dehydrogenase Total Creatine Kinase CK-MB (CK-2) CK-MB (CK-2) Rel Index Troponin I C-Reactive Protein NT-Pro-B Natriuret Pep Total Protein Albumin Globulin Albumin/Globulin Ratio Procalcitonin 0.09 Serum , Qual Chlamy pneumoniae PCR Adenovirus (PCR) B. pertussis DNA (PCR) B.parapertussis DNA PCR Coronavirus OC43 (PCR) Coronavirus HKU1 (PCR) Coronavirus 229E (PCR) SARS-CoV-2 (PCR) Coronavirus NL63 (PCR) Human Metapneumovir PCR Influenza Type A (PCR) Influenza Type B (PCR) M. pneumoniae (PCR) Parainfluenza 1 (PCR) Parainfluenza 2 (PCR) Parainfluenza 3 (PCR) Parainfluenza 4 (PCR) RSV (PCR) Entero/Rhino (PCR) 07/07/20 07/07/20 07/07/20 13:15 13:15 13:15 WBC RBC Hgb Hct MCV MCH MCHC RDW Plt Count Neut % (Auto) Lymph % (Auto) [place] % (Auto) Eos % (Auto) Baso % (Auto) Neut # (Auto) Lymph # (Auto) [place] # (Auto) Eos # (Auto) Baso # (Auto) D-Dimer ABG pH ABG pCO2 ABG pO2 ABG HCO3 ABG Total CO2 ABG O2 Saturation ABG Base Excess FiO2 Sodium 135 L Potassium 3.5 Chloride 97 L Carbon Dioxide 28 BUN 3 L Creatinine 0.47 L Estimated GFR > 60.0 BUN/Creatinine Ratio 6.4 Glucose 128 H Lactate 2.3 H Calcium 8.6 Ferritin 519 H Total Bilirubin 0.6 AST 91 H ALT 48 H Alkaline Phosphatase 90 Lactate Dehydrogenase 1816 H D Total Creatine Kinase 51 CK-MB (CK-2) TNP CK-MB (CK-2) Rel Index TNP Troponin I < 0.012 C-Reactive Protein 18.7 H NT-Pro-B Natriuret Pep 57 Total Protein 7.2 Albumin 3.8 Globulin 3.4 Albumin/Globulin Ratio 1.1 Procalcitonin Serum , Qual Negative Chlamy pneumoniae PCR Adenovirus (PCR) B. pertussis DNA (PCR) B.parapertussis DNA PCR Coronavirus OC43 (PCR) Coronavirus HKU1 (PCR) Coronavirus 229E (PCR) SARS-CoV-2 (PCR) Coronavirus NL63 (PCR) Human Metapneumovir PCR Influenza Type A (PCR) Influenza Type B (PCR) M. pneumoniae (PCR) Parainfluenza 1 (PCR) Parainfluenza 2 (PCR) Parainfluenza 3 (PCR) Parainfluenza 4 (PCR) RSV (PCR) Entero/Rhino (PCR) 07/07/20 07/07/20 07/07/20 13:31 13:53 15:21 WBC RBC Hgb Hct MCV MCH MCHC RDW Plt Count Neut % (Auto) Lymph % (Auto) [place] % (Auto) Eos % (Auto) Baso % (Auto) Neut # (Auto) Lymph # (Auto) [place] # (Auto) Eos # (Auto) Baso # (Auto) D-Dimer ABG pH 7.49 H ABG pCO2 34.1 L ABG pO2 70 L ABG HCO3 26 ABG Total CO2 27 ABG O2 Saturation 95 ABG Base Excess 2.0 FiO2 44 Sodium Potassium Chloride Carbon Dioxide BUN Creatinine Estimated GFR BUN/Creatinine Ratio Glucose Lactate Calcium Ferritin Total Bilirubin AST ALT Alkaline Phosphatase Lactate Dehydrogenase Total Creatine Kinase CK-MB (CK-2) CK-MB (CK-2) Rel Index Troponin I C-Reactive Protein NT-Pro-B Natriuret Pep Total Protein Albumin Globulin Albumin/Globulin Ratio Procalcitonin Serum , Qual Chlamy pneumoniae PCR Not detected Adenovirus (PCR) Not detected B. pertussis DNA (PCR) Not detected B.parapertussis DNA PCR Not detected Coronavirus OC43 (PCR) Not detected Coronavirus HKU1 (PCR) Not detected Coronavirus 229E (PCR) Not detected SARS-CoV-2 (PCR) Not detected Positive H Coronavirus NL63 (PCR) Not detected Human Metapneumovir PCR Not detected Influenza Type A (PCR) Not detected Influenza Type B (PCR) Not detected M. pneumoniae (PCR) Not detected Parainfluenza 1 (PCR) Not detected Parainfluenza 2 (PCR) Not detected Parainfluenza 3 (PCR) Not detected Parainfluenza 4 (PCR) Not detected RSV (PCR) Not detected Entero/Rhino (PCR) Not detected Assessment & Plan Assessment & Plan narrative: Ms. Weems is a 34-year-old woman with a past medical history of asthma and recent diagnosis of pneumonia presents with worsening shortness of breath and hypoxemia found to be in acute respiratory failure from COVID pneumonia 1. COVID pneumonia-she will be kept on high-flow nasal cannula. She is already underwent initial CRISTY score at 2 hours after being on high-flow and this was calculated by me to be 5.5. She will be continued on daily dexamethasone and remdesivir. She will have repeat are CRISTY score at 6 hours and 12 horus. She will be encourage to self prone. Her inflammatory markers are notably elevated with D-dimer, LDH, transaminitis, and CRP all elevated. We will trend these daily, in addition to troponin, PT, PTT, and fibrinogen. Limit lab draws. 2. Asthma-continue with inhalers PRN, RT to attempt peak flow. Diet: Regular DVT ppx: lovenox 40u sc GI ppx: protonix 40mg daily CODE status: Full COVID-19 COVID-19 status: Positive Result date/Date tested (Pos, Neg/Pending): 07/02/20 Time Spent With Patient Time with patient: 25 - 35 minutes Quality MIPS - Admit Advanced Care Plan / Current Medications Measures: #47 ? Advanced Care Plan Clinician documentation instruction: document at admission. [] I confirmed that the patient's Advance Care Plan is present, code status is documented, or surrogate decision maker is listed in the patient?s medical record. [SATISFIES MIPS PERFORMANCE] If Yes, Stop Here [] The patient?s Advance Care plan is not present because: (select) [MIPS PERFORMANCE EXCEPTION/EXCLUSION] [] I confirmed today that the patient does not wish or was not able to name a surrogate decision maker or provide an Advance Care Plan. [] Hospice care is currently being provided or has been provided this calendar year [] I did NOT confirm today the presence of an Advance Care Plan or surrogate decision maker documented within the patient's medical record. [DOES NOT SATISFY MIPS PERFORMANCE] #130 - Documentation of Current Medications in the Medical Record Clinician documentation instruction: use macro the first time you see a patient. [] I have utilized all available immediate resources to obtain, update, or review the patient?s current medications. [SATISFIES MIPS PERFORMANCE] If Yes, Stop Here [] The patient is not eligible for medication reconciliation; the patient is in an emergent medical situation where delaying treatment would jeopardize the patient?s health. [MIPS PERFORMANCE EXCEPTION/EXCLUSION] [] I did NOT confirm, update or review the patient's current list of medications today. [DOES NOT SATISFY MIPS PERFORMANCE] MIPS - CL Central Venous Catheter Placement Measure: #76 ? Prevention of Central Venous Catheter (CVC) ? Related Bloodstream Infection Clinician documentation instruction: use macro every time you place a central line. [] All elements of Maximal Sterile Barrier Technique, including hand hygiene, skin prep, and sterile ultrasound technique (if used) were followed. [SATISFIES MIPS PERFORMANCE] If Yes, Stop Here [] If ?No?, the medical reason all elements were NOT used for medical reason [] (ex. emergent condition). [] Maximal Sterile Barrier Technique was not followed, no reason provided [DOES NOT SATISFY MIPS PERFORMANCE] MIPS - DC Heart Failure Measures: #5 - Heart Failure (HF): Angiotensin-Converting Enzyme (ROSEMARY) Inhibitor or Angiotensin Receptor Gina (ARB) Therapy for Left Ventricular Systolic Dysfunction (LVSD) and #8 - Heart Failure (HF): Beta-Gina Therapy for Left Ventricular Systolic Dysfunction (LVSD) Clinician documentation instruction: use macro at every CHF discharge. [] The patient has current or prior documentation of left ventricular ejection fraction (LVEF) less than 40%, or moderate or severely depressed left ventricular systolic function. Answer both: [SATISFIES MIPS PERFORMANCE] [] The patient was prescribed or already taking an Angiotensin-Converting Enzyme (ROSEMARY) Inhibitor, or Angiotensin Receptor Gina (ARB). [] The patient was prescribed or already taking a beta-gina. If Yes to Both, Stop Here [] Patient not prescribed/taking: [MIPS PERFORMANCE EXCEPTION/EXCLUSION] [] ROSEMARY or ARB for medical/patient/system reason(s) including [] (ex. allergy, intolerance, contraindication) [] Beta-gina for medical/patient/system reason(s) including [] (ex. allergy, intolerance, contraindication) [] Patient not prescribed/taking: [DOES NOT SATISFY MIPS PERFORMANCE] [] ROSEMARY or ARB, no reason given [] Beta-gina, no reason given
--- NOTE | 2020-07-07 18:12 | PC.NURSE ---
Addendum entered by Judith Jeffery R.N. 07/07/20 22:58: Pt with acrylic nails. Discussed changing where pulse oximeter is placed, RT to bedside and pulse oximeter placed on earlobe. SPO2 remained in mid 90s. MD aware. Original Note: Admission: Pt arrives to ICU from ER on Heated High Flow NC, with FiO2 80%, Flow 50L. Pt helped OOB to commode with FiO2 up to 90% and flow up to 55L. Pt proned with SPO2 remaining mainly between 90-96%. RR 14-18. Pt complains of SOB and dry cough. Pt is A and O x4, denies pain. Pt reports that she had diarrhea at home. Otherwise denies nausea, abdomen soft/non-tender, good BTs throughout. Small amount of clear dark yellow urine. Pt is independent with mobility, no deficits noted. Denies pain. Pt helped to lay prone after her initial assessment was done and has been been prone for ~ 1.5 hours. Call light within reach, will notify MD with changes.
[2020-07-07] MEDS: ENOXAPARIN 40 MG/0.4 ML SYRINGE SUBCUT (22:06)
[2020-07-07] MEDS: MELATONIN 3 MG TABLET 6 MG PO (22:06)
[2020-07-07] MEDS: clonazePAM 0.5 MG TABLET PO (22:07)
[2020-07-07] MEDS: FAMOTIDINE 20 MG TABLET PO (22:07)
[2020-07-07] MEDS: CLOMIPRAMINE HCL 25 MG CAPSULE 100 MG PO (22:08)
[2020-07-08] VITALS (22 sets, daily range): BP systolic 117–131; BP diastolic 68–82; PULSE 81–116; RESP 0–37; TEMP 35.9–36.7; O2SAT 94–100
[2020-07-08 05:10] LABS: Fibrinogen 495 mg/dL (211-428)
[2020-07-08 05:13] LABS: D Dimer 549 ng/mL (<230)
[2020-07-08 05:14] LABS: Hematocrit 41.6 % (36-46); Hemoglobin 14.2 g/dL (12.0-16.0); Mean Corpuscular HGB Conc 34.2 % (30-36); Mean Corpuscular Hemoglobin 29.7 PG (26-34); Mean Corpuscular Volume 86.8 fL (80-100); Platelet Count 215 X10^3/uL (150-400); White Blood Cell Count 7.6 X10^3/uL (4.5-11.0)
[2020-07-08 05:15] LABS: BUN Creatinine Ratio 15.2 (6-22); Blood Urea Nitrogen 7 mg/dL (7-17); Calcium 8.8 mg/dL (8.4-10.2); Carbon Dioxide 31 mmol/L (22-32); Chloride 99 mmol/L (98-107); Estimated Glomerular Filt Rate > 60.0 mL/min (>60); Glucose 158 mg/dL (70-100); HEMOLYSIS < 15 (0-50); Magnesium 2.3 mg/dL (1.6-2.3); Phosphorous 3.8 mg/dL (2.5-4.5); Potassium 3.7 mmol/L (3.4-5.1); Sodium 137 mmol/L (137-145)
[2020-07-08 05:16] LABS: Alanine Aminotransferase 62 IU/L (<35); Albumin 3.7 g/dL (3.5-5.0); Albumin Globulin Ratio 1.1 (1.0-2.8); Alkaline Phosphatase 85 U/L (38-126); Aspartate Aminotransferase 107 IU/L (14-36); Bilirubin Total 0.5 mg/dL (0.2-1.3); Bilirubin Unconjugated 0.4 mg/dL (0.0-1.1); Creatine Kinase 41 U/L (30-135); Globulin 3.4 g/dL (1.7-4.1); HEMOLYSIS < 15 (0-50); Lactate Dehydrogenase 1876 U/L (313-618); Total Protein 7.1 g/dL (6.3-8.2)
[2020-07-08 05:18] LABS: INR 1.1 (0.9-1.3); Prothrombin Time 12.6 SECONDS (10.1-12.7)
[2020-07-08 05:20] LABS: Add Manual Diff / Slide Review YES
[2020-07-08 05:21] LABS: PTT Partial Thromboplastin Tim 35 SECONDS (26.4-36.2)
[2020-07-08 05:25] LABS: Troponin I < 0.012 ng/mL (0.01-0.034)
[2020-07-08 05:28] LABS: C-Reactive Protein Quant 18.5 mg/dL (<1.0)
[2020-07-08 05:34] LABS: Neutrophils Absolute Manual 5852 /uL (3000-5900); Total Cells Counted 100
[2020-07-08 05:36] LABS: RBC Morphology Normal Morphology
[2020-07-08 06:26] LABS: Hepatitis B Surface Antigen NEGATIVE s/c (NEGATIVE)
--- NOTE | 2020-07-08 06:32 | PC.NURSE ---
Athletic Trainer Note-Patient slept prone from 0130 to 5, otherwise has been Lt side lying. On HHFNC 40% FIO2/45L, SpO2 has been >95% at rest and no lower then 90% while turning. RR 20s-30s, occasional dry cough, LS coarse anterior with intermittent faint wheezes and diminished posterior. SR/ST, afebrile.
[2020-07-08 06:38] LABS: Hep C Virus Ab w/Reflex Quant NEGATIVE s/c (NEGATIVE)
[2020-07-08] MEDS: SODIUM CHLORIDE 0.9% FLUSH 10 ML IV ×2 (08:52→21:14)
[2020-07-08] MEDS: ENOXAPARIN 40 MG/0.4 ML SYRINGE SUBCUT ×2 (08:52→21:13)
[2020-07-08] MEDS: PANTOPRAZOLE 40 MG VIAL IV (08:53)
[2020-07-08] MEDS: DEXAMETHASONE 10 MG/ML VIAL 6 MG IV (08:54)
[2020-07-08] MEDS: clonazePAM 0.5 MG TABLET PO ×2 (08:55→21:13)
[2020-07-08] MEDS: FAMOTIDINE 20 MG TABLET PO (08:55)
--- NOTE | 2020-07-08 11:56 | CM.DANOTE ---
DCP: Case received, EMR reviewed. Did not meet with patient secondary to her having positive COVID results. She is also on high flow oxygen. Was able to complete DCP assessment based on information given in EMR, as well as her nurse on the floor. Patient is a 34 year old female who admitted yesterday afternoon to the care of the hospitalist team. PCP: Currently unknown, patient resides in [place], and is here visiting. Payer: [facility]. Patient came to the hospital via private vehicle secondary to respiratory symptoms. Patient had been at [facility] on the 02 of July, and diagnosed with COVID. Patient is here visiting from [place], came to be with her sister. After her diagnosis, she developed a fever of 101, and had decreased oxygen saturation. She is currently on high flow oxygen. Did not meet with patient secondary to having COVID, but it is noted that patient is here visiting. Discussed during team rounds. Hospitalist anticipates that patient will be here for a few days. She was put on Decamethosone, as well as Remdesivir. Will continue to attempt to decrease oxygen demands. P: DCP to continue to follow. Patient is here for medical needs, but should be able to return when she is deemed medically stable and does not have oxygen demands. Will be available for any resources needed. Hallie Mendoza RN/Grades 9 Thru [employer] Visiting Teacher
--- NOTE | 2020-07-08 12:53 | DIET.PN ---
Dietary Progress Note RD note: Adding ONS Ensure Max c lunches to support high PRO, low kcal, low CHO for this patient c respiratory failure secondary to covid19 pneumonia. Will assess for tolerance.
[2020-07-08] MEDS: REMDESIVIR 100 MG in SODIUM CHLORIDE 0.9% 230 ML 250 ML IV (14:45)
[2020-07-08] MEDS: ACETAMINOPHEN 325 MG TABLET 650 MG PO (15:08)
--- NOTE | 2020-07-08 15:30 | P.PN_ITS ---
Subjective Subjective Date Patient Seen: 07/08/20 Time Patient Seen: 07:45 Interval history: This morning she says she is feeling better. No fevers. Shortness of breath improved. Still has mild cough. No abdominal symptoms currently. Overnight no events, she has been successfully been weaned down on her heated high flow o2. Exam Vital Signs (past 8 hours): - 07/08/20 08:10 07/08/20 09:00 07/08/20 12:16 Temperature 98.0 F Pulse Rate 97 H 110 H 112 H Respiratory Rate 15 25 H 19 Blood Pressure 118/68 Pulse Oximetry 97 95 99 07/08/20 13:09 Temperature Pulse Rate Respiratory Rate Blood Pressure Pulse Oximetry 99 Fraction of Inspired Oxygen 0.38 Oxygen Delivery Method High Flow Nasal Cannula Oxygen Flow Rate 12 Narrative Exam Narrative: GEN: comfortable, appears in mild respiratory distress HEENT: moist mucous membranes, trachea midline EYES: PERRLA CV: tachycardic with no murmurs PULM: coarse breath sounds bilaterally, with poor air movement GI: soft, nontender, nondistended, no organomegaly noted, normal bowel sounds SKIN: no rashes appreciated NEURO: awake and alert and oriented, moving all extremities grossly PSYCH: pleasant, but appears fatigued Objective Labs Result Diagrams: 07/08/20 04:40 07/08/20 04:40 Labs: Laboratory Results - last 24 hr 07/07/20 07/07/20 07/08/20 15:21 17:00 04:40 WBC RBC Hgb Hct MCV MCH MCHC RDW Plt Count Neut % (Auto) Lymph % (Auto) [place] % (Auto) Eos % (Auto) Baso % (Auto) Lymph # (Auto) [place] # (Auto) Baso # (Auto) Total Counted Seg Neutrophils % Band Neutrophils % Lymphocytes % (Manual) Monocytes % (Manual) Neutrophils # (Manual) Plt Morphology Comment RBC Morphology PT INR APTT Fibrinogen 495 H D-Dimer 549 H Sodium Potassium Chloride Carbon Dioxide BUN Creatinine Estimated GFR BUN/Creatinine Ratio Glucose Calcium Phosphorus Magnesium Total Bilirubin Conjugated Bilirubin Unconjugated Bilirubin AST ALT Alkaline Phosphatase Lactate Dehydrogenase Total Creatine Kinase Troponin I C-Reactive Protein Total Protein Albumin Globulin Albumin/Globulin Ratio Nasal Screen MRSA (PCR) Negative for mrsa SARS-CoV-2 (PCR) Positive H Hep Bs Antigen Hepatitis C Antibody 07/08/20 07/08/20 07/08/20 04:40 04:40 04:40 WBC 7.6 RBC 4.80 Hgb 14.2 Hct 41.6 MCV 86.8 MCH 29.7 MCHC 34.2 RDW 13.0 Plt Count 215 Neut % (Auto) Not Reportable Lymph % (Auto) Not Reportable [place] % (Auto) Not Reportable Eos % (Auto) Not Reportable Baso % (Auto) Not Reportable Lymph # (Auto) Not Reportable [place] # (Auto) Not Reportable Baso # (Auto) Not Reportable Total Counted 100 Seg Neutrophils % 71.0 H Band Neutrophils % 6.0 Lymphocytes % (Manual) 13.0 L Monocytes % (Manual) 10.0 Neutrophils # (Manual) 5852 Plt Morphology Comment . RBC Morphology Normal morphology PT INR APTT Fibrinogen D-Dimer Sodium Potassium Chloride Carbon Dioxide BUN Creatinine Estimated GFR BUN/Creatinine Ratio Glucose Calcium Phosphorus Magnesium Total Bilirubin 0.5 Conjugated Bilirubin 0.0 Unconjugated Bilirubin 0.4 AST 107 H ALT 62 H Alkaline Phosphatase 85 Lactate Dehydrogenase 1876 H Total Creatine Kinase 41 Troponin I < 0.012 C-Reactive Protein 18.5 H Total Protein 7.1 Albumin 3.7 Globulin 3.4 Albumin/Globulin Ratio 1.1 Nasal Screen MRSA (PCR) SARS-CoV-2 (PCR) Hep Bs Antigen Negative Hepatitis C Antibody Negative 07/08/20 07/08/20 04:40 04:40 WBC RBC Hgb Hct MCV MCH MCHC RDW Plt Count Neut % (Auto) Lymph % (Auto) [place] % (Auto) Eos % (Auto) Baso % (Auto) Lymph # (Auto) [place] # (Auto) Baso # (Auto) Total Counted Seg Neutrophils % Band Neutrophils % Lymphocytes % (Manual) Monocytes % (Manual) Neutrophils # (Manual) Plt Morphology Comment RBC Morphology PT 12.6 INR 1.1 APTT 35 Fibrinogen D-Dimer Sodium 137 Potassium 3.7 Chloride 99 Carbon Dioxide 31 BUN 7 Creatinine 0.46 L Estimated GFR > 60.0 BUN/Creatinine Ratio 15.2 Glucose 158 H Calcium 8.8 Phosphorus 3.8 Magnesium 2.3 Total Bilirubin Conjugated Bilirubin Unconjugated Bilirubin AST ALT Alkaline Phosphatase Lactate Dehydrogenase Total Creatine Kinase Troponin I C-Reactive Protein Total Protein Albumin Globulin Albumin/Globulin Ratio Nasal Screen MRSA (PCR) SARS-CoV-2 (PCR) Hep Bs Antigen Hepatitis C Antibody [facility] Medical History (Updated 07/07/20 @ 23:16 by Judith Jeffery RN) Anxiety OCD (obsessive compulsive disorder) Patient denies medical problems Seasonal allergies Seasonal asthma Social History household members: spouse Smoking Status: Never smoker Assessment & Plan Assessment & Plan narrative: Ms. Weems is a 34-year-old woman with a past medical history of asthma and recent diagnosis of pneumonia presents with worsening shortness of breath and hypoxemia found to be in acute respiratory failure from COVID pneumonia 1. COVID pneumonia-She is being weaned down from high flow nasal cannula, initially was fio2 0.9 at 50L and has been consistently weaned down throughout the morning, and may be able to try non heated high flow. Continue to target pulse ox >90%. She will be continued on daily dexamethasone and remdesivir, day 1 07/07. She has been self-proning. Her inflammatory markers are notably elevated with D-dimer, LDH, transaminitis, and CRP all elevated. hep B serology labs pending. Hep C negative. Continue to trend LDH, transamitis, CRP until clear downtrend or until patient significantly clinically improved. Sepsis from covid pneumonia with organ dysfunction of acute respiratory failure. 2. Asthma-continue with inhalers PRN, restart montelukast 3. OCD/anxiety - can restart clonazepam and ability now with respiratory status improving 4. Morbid obesity - with BMI of 44.1, outpatient behavioral modifications Diet: Regular DVT ppx: lovenox 40u sc BID GI ppx: protonix 40mg daily CODE status: Full Quality MIPS - Admit Advanced Care Plan / Current Medications Measures: #47 ? Advanced Care Plan Clinician documentation instruction: document at admission. [] I confirmed that the patient's Advance Care Plan is present, code status is documented, or surrogate decision maker is listed in the patient?s medical record. [SATISFIES MIPS PERFORMANCE] If Yes, Stop Here [] The patient?s Advance Care plan is not present because: (select) [MIPS PERFOR PETRA EXCEPTION/EXCLUSION] [] I confirmed today that the patient does not wish or was not able to name a surrogate decision maker or provide an Advance Care Plan. [] Hospice care is currently being provided or has been provided this calendar year [] I did NOT confirm today the presence of an Advance Care Plan or surrogate decision maker documented within the patient's medical record. [DOES NOT SATISFY MIPS PERFORMANCE] #130 - Documentation of Current Medications in the Medical Record Clinician documentation instruction: use macro the first time you see a patient. [] I have utilized all available immediate resources to obtain, update, or review the patient?s current medications. [SATISFIES MIPS PERFORMANCE] If Yes, Stop Here [] The patient is not eligible for medication reconciliation; the patient is in an emergent medical situation where delaying treatment would jeopardize the patient?s health. [MIPS PERFORMANCE EXCEPTION/EXCLUSION] [] I did NOT confirm, update or review the patient's current list of medications today. [DOES NOT SATISFY MIPS PERFORMANCE] MIPS - CL Central Venous Catheter Placement Measure: #76 ? Prevention of Central Venous Catheter (CVC) ? Related Bloodstream Infection Clinician documentation instruction: use macro every time you place a central line. [] All elements of Maximal Sterile Barrier Technique, including hand hygiene, skin prep, and sterile ultrasound technique (if used) were followed. [SATISFIES MIPS PERFORMANCE] If Yes, Stop Here [] If ?No?, the medical reason all elements were NOT used for medical reason [] (ex. emergent condition). [] Maximal Sterile Barrier Technique was not followed, no reason provided [DOES NOT SATISFY MIPS PERFORMANCE] MIPS - DC Heart Failure Measures: #5 - Heart Failure (HF): Angiotensin-Converting Enzyme (ROSEMARY) Inhibitor or Angiotensin Receptor Gina (ARB) Therapy for Left Ventricular Systolic Dysfunction (LVSD) and #8 - Heart Failure (HF): Beta-Gina Therapy for Left Ventricular Systolic Dysfunction (LVSD) Clinician documentation instruction: use macro at every CHF discharge. [] The patient has current or prior documentation of left ventricular ejection fraction (LVEF) less than 40%, or moderate or severely depressed left ventricular systolic function. Answer both: [SATISFIES MIPS PERFORMANCE] [] The patient was prescribed or already taking an Angiotensin-Converting Enzyme (ROSEMARY) Inhibitor, or Angiotensin Receptor Gina (ARB). [] The patient was prescribed or already taking a beta-gina. If Yes to Both, Stop Here [] Patient not prescribed/taking: [MIPS PERFORMANCE EXCEPTION/EXCLUSION] [] ROSEMARY or ARB for medical/patient/system reason(s) including [] (ex. allergy, intolerance, contraindication) [] Beta-gian for medical/patient/system reason(s) including [] (ex. a llergy, intolerance, contraindication) [] Patient not prescribed/taking: [DOES NOT SATISFY MIPS PERFORMANCE] [] ROSEMARY or ARB, no reason given [] Beta-gina, no reason given
[2020-07-08] MEDS: CLOMIPRAMINE HCL 25 MG CAPSULE 100 MG PO (21:13)
--- NOTE | 2020-07-08 22:54 | PC.NURSE ---
Patient A/O x4. No complaints of pain. On 12 L HFNC at start of shift, was weaned down to 5L for a few hours until patient requested to increase O2 due to feeling like she is working harder to breathe. Patient now on 7L HFNC and sPo2 >90%. Patient did desat down to 85% upon transfer from chair to bed but was able to recover within 5mins. Patient currently laying on side. HR remains borderline tachy, BP normal, CBGs WNL. Arriaza in place. Patient had BM using bedside commode. Belongings and call light within reach, no questions or concerns at this time.
[2020-07-09] VITALS (10 sets, daily range): BP systolic 110–134; BP diastolic 68–83; PULSE 79–116; RESP 18–25; TEMP 36.5–36.8; O2SAT 93–97
[2020-07-09] MEDS: MELATONIN 3 MG TABLET 6 MG PO ×2 (00:09→20:10)
[2020-07-09 01:48] LABS: Hepatitis B Core Antibody Negative (Negative)
[2020-07-09] MEDS: BENZOCAINE/MENTHOL 1 LOZ PKT 1 EACH PO ×2 (03:34→14:17)
[2020-07-09] MEDS: ACETAMINOPHEN 325 MG TABLET 650 MG PO ×4 (03:44→20:09)
[2020-07-09 04:45] LABS: Hepatitis B Surf Ab Qualitativ Non Reactive (.)
[2020-07-09 05:02] LABS: Add Manual Diff / Slide Review NO; Basophils Absolute Auto 0 /uL (0-100); Basophils Percent Auto 0.4 % (0-2); Eosinophils Absolute Auto 0 /uL (0-450); Hematocrit 39.7 % (36-46); Hemoglobin 13.7 g/dL (12.0-16.0); Lymphocytes Absolute Auto 1900 /uL (1100-4500); Lymphocytes Percent Auto 14.2 % (25-40); Mean Corpuscular HGB Conc 34.6 % (30-36); Mean Corpuscular Hemoglobin 29.9 PG (26-34); Mean Corpuscular Volume 86.5 fL (80-100); Monocytes Absolute Auto 800 /uL (0-900); Monocytes Percent Auto 5.5 % (3-14); Neutrophils Absolute Auto 11000 /uL (1500-7000); Neutrophils Percent Auto 79.9 % (50-75); Platelet Count 292 X10^3/uL (150-400); Red Blood Cell Count 4.59 X10^6/uL (4.0-5.2); Red Cell Distribution Width 12.8 % (11.6-14.8); White Blood Cell Count 13.7 X10^3/uL (4.5-11.0)
[2020-07-09 05:11] LABS: Alanine Aminotransferase 94 IU/L (<35); Albumin 3.5 g/dL (3.5-5.0); Albumin Globulin Ratio 1.1 (1.0-2.8); Alkaline Phosphatase 76 U/L (38-126); Aspartate Aminotransferase 130 IU/L (14-36); BUN Creatinine Ratio 26.1 (6-22); Bilirubin Total 0.6 mg/dL (0.2-1.3); Bilirubin Unconjugated 0.4 mg/dL (0.0-1.1); Blood Urea Nitrogen 12 mg/dL (7-17); C-Reactive Protein Quant 6.5 mg/dL (<1.0); Calcium 8.9 mg/dL (8.4-10.2); Carbon Dioxide 28 mmol/L (22-32); Chloride 101 mmol/L (98-107); Estimated Glomerular Filt Rate > 60.0 mL/min (>60); Globulin 3.2 g/dL (1.7-4.1); Glucose 129 mg/dL (70-100); HEMOLYSIS < 15 (0-50); Lactate Dehydrogenase 1641 U/L (313-618); Potassium 3.6 mmol/L (3.4-5.1); Sodium 138 mmol/L (137-145); Total Protein 6.7 g/dL (6.3-8.2)
--- NOTE | 2020-07-09 06:31 | PC.NURSE ---
Media Account Executive Note-Patient has been on HFNC 8L overnight, SpO2 >90%, RR 20s-30s, LS dim with underlying coarseness. SR/ST, afebrile. Proned for approximately 3hours, then Rt side lying for approximately 3 hours, then onto back for remainder of shift.
[2020-07-09] MEDS: PANTOPRAZOLE 40 MG VIAL IV (08:54)
[2020-07-09] MEDS: DEXAMETHASONE 10 MG/ML VIAL 6 MG IV (08:54)
[2020-07-09] MEDS: ENOXAPARIN 40 MG/0.4 ML SYRINGE SUBCUT ×2 (08:54→20:10)
[2020-07-09] MEDS: clonazePAM 0.5 MG TABLET PO (08:54)
[2020-07-09] MEDS: SODIUM CHLORIDE 0.9% 1,000 ML 1000 ML IV (12:10)
[2020-07-09] MEDS: SODIUM CHLORIDE 0.9% FLUSH 10 ML IV ×3 (12:10→20:23)
[2020-07-09] MEDS: MONTELUKAST 10 MG TABLET PO (12:12)
[2020-07-09] MEDS: REMDESIVIR 100 MG in SODIUM CHLORIDE 0.9% 230 ML 250 ML IV (14:10)
--- NOTE | 2020-07-09 14:36 | PC.NURSE ---
AM shift Pt is on 8L HFNC, Spo2 98% while at rest, starting to wean down off 02. Tolerating well. Up to shower with 1PA and brief recovery from SOB symptoms. Pt is overall anxious and has intermittent c/o JUNIOR. Room darkened per Pt request. Very flat affect, minimal short responses to assessment questions. Pt is upgraded to floor care status. Up to chair for meals. Lungs are dim, and tight. Enc deep breathing and cough. Cepacol lozenge provided. Pt tachycardic, 110-130 at rest this shift. NS bolus given with good results NSR 90's after. Pt denies nausea. Eating 50-75% of meals.
--- NOTE | 2020-07-09 14:56 | P.PN_ITS ---
Subjective Subjective Date Patient Seen: 07/09/20 Time Patient Seen: 14:56 Interval history: This morning she says she is feeling better. No fevers. Shortness of breath improved. Still has mild cough. Slightly increased diarrhea today. She was given a bolus of fluid for tachycardia into the 130s noted on telemetry with improvement in her HR. She has been successfully been weaned down on her heated high flow o2 to regular high flow nasal cannula. now between 7-8 L of O2. Inflammatory markers are also showing improvement. Exam Vital Signs (past 8 hours): - 07/09/20 07:00 07/09/20 08:20 07/09/20 11:00 Temperature 98.1 F 98.3 F Pulse Rate 108 H 116 H 113 H Respiratory Rate 19 24 20 Blood Pressure 130/83 110/68 Pulse Oximetry 97 95 96 Fraction of Inspired Oxygen 0.38 Oxygen Delivery Method High Flow Nasal Cannula Oxygen Flow Rate 7 Narrative Exam Narrative: GEN: comfortable, no acute distress on nasal cannula. HEENT: moist mucous membranes, trachea midline EYES: PERRL. no scleral icterus. CV: tachycardic rate with regular rhythm with no murmurs PULM: coarse breath sounds bilaterally, with poor air movement GI: soft, nontender, nondistended, no organomegaly noted, normal bowel sounds SKIN: no rashes appreciated NEURO: awake and alert and oriented, moving all extremities grossly PSYCH: pleasant, but appears fatigued Objective Labs Result Diagrams: 07/09/20 04:41 07/09/20 04:41 Labs: Laboratory Results - last 24 hr 07/08/20 07/08/20 07/09/20 04:40 04:40 04:41 WBC 13.7 H D RBC 4.59 Hgb 13.7 Hct 39.7 MCV 86.5 MCH 29.9 MCHC 34.6 RDW 12.8 Plt Count 292 Neut % (Auto) 79.9 H Lymph % (Auto) 14.2 L [place] % (Auto) 5.5 Eos % (Auto) 0.0 L Baso % (Auto) 0.4 Neut # (Auto) 03302 H Lymph # (Auto) 1900 [place] # (Auto) 800 Eos # (Auto) 0 Baso # (Auto) 0 Sodium Potassium Chloride Carbon Dioxide BUN Creatinine Estimated GFR BUN/Creatinine Ratio Glucose Calcium Total Bilirubin Conjugated Bilirubin Unconjugated Bilirubin AST ALT Alkaline Phosphatase Lactate Dehydrogenase C-Reactive Protein Total Protein Albumin Globulin Albumin/Globulin Ratio Hep Bs Antibody Non reactive Hep B Core Total Ab Negative 07/09/20 04:41 WBC RBC Hgb Hct MCV MCH MCHC RDW Plt Count Neut % (Auto) Lymph % (Auto) [place] % (Auto) Eos % (Auto) Baso % (Auto) Neut # (Auto) Lymph # (Auto) [place] # (Auto) Eos # (Auto) Baso # (Auto) Sodium 138 Potassium 3.6 Chloride 101 Carbon Dioxide 28 BUN 12 Creatinine 0.46 L Estimated GFR > 60.0 BUN/Creatinine Ratio 26.1 H Glucose 129 H Calcium 8.9 Total Bilirubin 0.6 Conjugated Bilirubin 0.0 Unconjugated Bilirubin 0.4 AST 130 H ALT 94 H Alkaline Phosphatase 76 Lactate Dehydrogenase 1641 H C-Reactive Protein 6.5 H Total Protein 6.7 Albumin 3.5 Globulin 3.2 Albumin/Globulin Ratio 1.1 Hep Bs Antibody Hep B Core Total Ab [facility] Medical History (Updated 07/07/20 @ 23:16 by Judith Jeffery RN) Anxiety OCD (obsessive compulsive disorder) Patient denies medical problems Seasonal allergies Seasonal asthma Social History household members: spouse Smoking Status: Never smoker Assessment & Plan Assessment & Plan narrative: Ms. Weems is a 34-year-old woman with a past medical history of asthma and recent diagnosis of pneumonia presents with worsening shortness of breath and hypoxemia found to be in acute respiratory failure from COVID pneumonia.Improving with steroid and antiviral therapy. 1. COVID pneumonia-She is being weaned down from high flow nasal cannula, initially was fio2 0.9 at 50L and has been consistently weaned down to now 7-8 L via HFNC. Continue to target pulse ox >90%. She will be continued on daily dexamethasone and remdesivir, day 1 07/07. She has been self-proning. Her inflam matory markers are notably elevated with D-dimer, LDH, transaminitis, and CRP all elevated but starting to improve. hep B serology labs pending. Hep C negative. Continue to trend LDH, transamitis. - symptomatic treatment. Will give loperamide to assist with diarrhea causing dehydration today. 2. Acute respiratory failure with hypoxemia, present on admission, improving. - secondary to COVID-19 as ntoed above. Continue therapy as noted above. 3. Transaminitis, rising - mild elevation in AST and ALT since admission which can be secondary to COVID 19 infection, HI, amongst other etiologies but continuing to rise. May be secondary to remdesevir therapy, will stop if levels continue to rise to >5x ULN. Will continue to monitor. 4. Asthma-continue with inhalers PRN, restart montelukast 5. OCD/anxiety - restarted home clonazepam but dosing has been ineffective. Patient struggling with current hospitalization. Will raise clonazepam dosing given continued improvement to help with anxiety. 6. Morbid obesity - with BMI of 44.1, outpatient behavioral modifications. Patient's obesity puts her at higher risk for complications secondary to COVID- 19 infection and higher risk for severe disease which the patient currently has. Diet: Regular DVT ppx: lovenox 40u sc BID GI ppx: protonix 40mg daily COVID-19 COVID-19 status: Positive
[2020-07-09] MEDS: LOPERAMIDE 2 MG CAPSULE PO (16:57)
[2020-07-09] MEDS: FLUTICASONE 120 SPRAY/16 GM SPRAY.SUSP NASAL (20:09)
[2020-07-09] MEDS: CLOMIPRAMINE HCL 25 MG CAPSULE 100 MG PO (20:23)
--- NOTE | 2020-07-09 20:29 | PC.NURSE ---
Addendum entered by Rosie Bermudez R.N. 07/09/20 22:03: adding onto previous note, pt in chair from 1999 to around 2200. v/s stable on 5LHFNC. Original Note: Overall, pt did well this shift. SaO2 maintained above 94% on 5L HFNC even after activity. Afebrile. Pt wynn d/c'd at 1800, pt voided at 2000 SBA to bathroom. tolerated activity well, O2 sats maintained on oxygen to restroom. Had one period around 1800 of tachycardia and decreased o2 sats (low 90s) due to a hot flash and period of increased anxiety. Issue resolved, pt afebrile during issue. Pt sat up in the chair from 1999 to . Tachycardia (115-125) right after walking and sitting back down, resolved within five minutes of stopped activity. Sheets on bed changed. Pt c/o persistent sinus headache. PRN tylenol was given at 1400 prior to evening shift beginning. PATIENT [employer] notified, prescribed Flomax.
[2020-07-10] VITALS (8 sets, daily range): BP systolic 103–143; BP diastolic 54–89; PULSE 60–134; RESP 17–31; TEMP 36.3–37.3; O2SAT 90–99
[2020-07-10 05:07] LABS: Alanine Aminotransferase 109 IU/L (<35); Albumin 3.3 g/dL (3.5-5.0); Albumin Globulin Ratio 1.1 (1.0-2.8); Alkaline Phosphatase 77 U/L (38-126); Aspartate Aminotransferase 87 IU/L (14-36); BUN Creatinine Ratio 23.9 (6-22); Bilirubin Total 0.3 mg/dL (0.2-1.3); Bilirubin Unconjugated 0.3 mg/dL (0.0-1.1); Blood Urea Nitrogen 11 mg/dL (7-17); Calcium 8.6 mg/dL (8.4-10.2); Carbon Dioxide 29 mmol/L (22-32); Chloride 103 mmol/L (98-107); Estimated Glomerular Filt Rate > 60.0 mL/min (>60); Globulin 3.1 g/dL (1.7-4.1); Glucose 110 mg/dL (70-100); HEMOLYSIS < 15 (0-50); Potassium 3.4 mmol/L (3.4-5.1); Sodium 139 mmol/L (137-145); Total Protein 6.4 g/dL (6.3-8.2)
[2020-07-10 05:09] LABS: Hemoglobin 13.3 g/dL (12.0-16.0); Mean Corpuscular Hemoglobin 29.6 PG (26-34); Mean Corpuscular Volume 87.1 fL (80-100); Platelet Count 310 X10^3/uL (150-400); Red Blood Cell Count 4.48 X10^6/uL (4.0-5.2); White Blood Cell Count 12.3 X10^3/uL (4.5-11.0)
[2020-07-10 05:11] LABS: Add Manual Diff / Slide Review YES
[2020-07-10 05:26] LABS: Neutrophils Absolute Manual 8118 /uL (3000-5900); RBC Morphology Normal Morphology; Total Cells Counted 100
[2020-07-10] MEDS: PANTOPRAZOLE 40 MG TABLET PO (05:38)
[2020-07-10] MEDS: ENOXAPARIN 40 MG/0.4 ML SYRINGE SUBCUT ×2 (09:20→20:21)
[2020-07-10] MEDS: DEXAMETHASONE 10 MG/ML VIAL 6 MG IV (09:20)
[2020-07-10] MEDS: MONTELUKAST 10 MG TABLET PO (09:20)
[2020-07-10] MEDS: SODIUM CHLORIDE 0.9% FLUSH 10 ML IV ×2 (09:20→20:23)
[2020-07-10] MEDS: clonazePAM 0.5 MG TABLET 1 MG PO (09:24)
--- NOTE | 2020-07-10 10:20 | CM.DPNOTE ---
Faxed patient's FMLA papers to [employer] that Dr. Fofana completed. Received fax confirmation. Scanned papers to EMR. Jacey Yu CM Asst.
--- NOTE | 2020-07-10 11:07 | CM.DPC ---
Addendum entered by Bree Krishnan LPN 07/10/20 11:39: Received a note from [facility] stating that [employer] insurance is following for d/c planning and wished to be updated by [facility]anner at . Have now called this number ([phone]) and left a message with request for a call back. Addendum entered by Bree Krishnan LPN 07/10/20 11:29: Called into room and spoke with pt. Introduced self and role. Pt clarifies that she and her came out from [place] together to see her sister (who lives in [place]). She says they plan to drive back home together when she is ready for d/c. She is aware that she will stay until she is stable for d/c and without supplemental oxygen needed. DCP team will continue to follow during pt's stay. Original Note: DCP: continued: Case received, EMR reviewed. Discussed in Team Rounds. Dr. Fofana stated that pt would remain in hospital until oxygen no longer needed as pt. DCPlan assessment from 07/08 is reviewed. Would add information to this to note pt with complicating factors of Obesessive Compulsive Disorder and anxiety plus morbid obesity. (280 lbs). Pt continues to be treated for respiratory failure and COVID + pnuemonia and will be here for a few more days per Dr. Fofana. Pt first tested + for COVID 19 on 07/02. Will plan to call into room and speak with pt re d/c plan. Pt has been here visiting her sister. Dr. Fofana reports in Rounds that sister is currently testing COVID - as is pt's , who is at home in [place].
[2020-07-10] MEDS: REMDESIVIR 100 MG in SODIUM CHLORIDE 0.9% 230 ML 250 ML IV (13:31)
[2020-07-10] MEDS: SODIUM CHLORIDE 0.9% 1,000 ML 999 ML IV (14:31)
--- NOTE | 2020-07-10 16:28 | P.PN_ITS ---
Subjective Subjective Date Patient Seen: 07/10/20 Time Patient Seen: 16:28 Interval history: This morning she says she is feeling better. No fevers. Shortness of breath improved. Still has mild cough. Diarrhea has resolved today. She was given a bolus of fluid for tachycardia into the 130s noted on telemetry with improvement in her HR today again. She was turned down to 4L today, which is sufficient at rest, however she went to the restroom and had prolonged de saturations into the upper 70s with prolonged recovery. Turned again up to 5L. Exam Vital Signs (past 8 hours): - 07/10/20 09:00 07/10/20 12:48 Temperature 97.6 F 97.4 F L Pulse Rate 86 109 H Pulse Rate [Orthostatic Lying] 86 Pulse Rate [Orthostatic Sitting] 126 H Pulse Rate [Orthostatic Standing] 134 H Respiratory Rate 24 17 Blood Pressure 129/77 111/83 Blood Pressure [Orthostatic Lying] 129/77 Blood Pressure [Orthostatic Sitting] 132/84 Blood Pressure [Orthostatic Standing] 103/54 L Pulse Oximetry 90 L 95 Fraction of Inspired Oxygen 0.38 Oxygen Delivery Method High Flow Nasal Cannula Oxygen Flow Rate 6 Narrative Exam Narrative: GEN: comfortable, no acute distress on nasal cannula. HEENT: moist mucous membranes, trachea midline EYES: PERRL. no scleral icterus. CV: tachycardic rate with regular rhythm with no murmurs PULM: coarse breath sounds bilaterally, with poor air movement GI: soft, nontender, nondistended, no organomegaly noted, normal bowel sounds SKIN: no rashes appreciated NEURO: awake and alert and oriented, moving all extremities grossly PSYCH: pleasant, but appears fatigued Objective Labs Result Diagrams: 07/10/20 04:37 07/10/20 04:37 Labs: Laboratory Results - last 24 hr 07/10/20 07/10/20 04:37 04:37 WBC 12.3 H RBC 4.48 Hgb 13.3 Hct 39.0 MCV 87.1 MCH 29.6 MCHC 34.0 RDW 13.0 Plt Count 310 Neut % (Auto) Not Reportable Lymph % (Auto) Not Reportable [place] % (Auto) Not Reportable Eos % (Auto) Not Reportable Baso % (Auto) Not Reportable Lymph # (Auto) Not Reportable [place] # (Auto) Not Reportable Baso # (Auto) Not Reportable Total Counted 100 Seg Neutrophils % 61.0 Band Neutrophils % 5.0 Lymphocytes % (Manual) 21.0 L Atypical Lymphs % 1.0 H Monocytes % (Manual) 12.0 H Neutrophils # (Manual) 8118 H RBC Morphology Normal morphology Sodium 139 Potassium 3.4 Chloride 103 Carbon Dioxide 29 BUN 11 Creatinine 0.46 L Estimated GFR > 60.0 BUN/Creatinine Ratio 23.9 H Glucose 110 H Calcium 8.6 Magnesium 2.0 Total Bilirubin 0.3 Conjugated Bilirubin 0.0 Unconjugated Bilirubin 0.3 AST 87 H ALT 109 H Alkaline Phosphatase 77 Total Protein 6.4 Albumin 3.3 L Globulin 3.1 Albumin/Globulin Ratio 1.1 [facility] Medical History (Updated 07/07/20 @ 23:16 by Judith Jeffery RN) Anxiety OCD (obsessive compulsive disorder) Patient denies medical problems Seasonal allergies Seasonal asthma Social History household members: spouse Smoking Status: Never smoker Assessment & Plan Assessment & Plan narrative: Ms. Weems is a 34-year-old woman with a past medical history of asthma and recent diagnosis of pneumonia presents with worsening shortness of breath and hypoxemia found to be in acute respiratory fa ilure from COVID pneumonia.Improving with steroid and antiviral therapy. 1. COVID pneumonia-She is being weaned down from high flow nasal cannula, initially was fio2 0.9 at 50L and has been consistently weaned down now as low as 4L today, staying between 4-5 L today via NC. Significant desaturations with activity though improving. Continue to target pulse ox >90%. She will be continued on daily dexamethasone and remdesivir, day 1 was 07/07. She has been self-proning with limited success. Her inflammatory markers were elevated with D-dimer, LDH, transaminitis, and CRP but started to improve. hep B serology labs negative. Hep C negative. - continue symptomatic treatment. loperamide as needed for diarrhea and flonase added for nasal congestion. 2. Acute respiratory failure with hypoxemia, present on admission, improving. - secondary to COVID-19 as ntoed above. Continue therapy as noted above. 3. Transaminitis, improved - mild elevation in AST and ALT since admission which can be secondary to COVID 19 infection, HI, amongst other etiologies. Initially rising but improved today. May be secondary to remdesevir therapy, will stop if levels continue to rise to >5x ULN. Will continue to monitor. 4. Asthma-continue with inhalers PRN, restart montelukast 5. OCD/anxiety - restarted home clonazepam but dosing has been ineffective. Patient struggling with current hospitalization. Will raise clonazepam dosing given continued improvement to help with anxiety. 6. Morbid obesity - with BMI of 44.1, outpatient behavioral modifications. Patient's obesity puts her at higher risk for complications secondary to COVID- 19 infection and higher risk for severe disease which the patient currently has. 7. Sepsis ruled out - patient with COVID 19 and acute respiratory failure, elevated SOFA score given respiratory failure however she had no dysregulated response given COVID pneumonia. Diet: Regular DVT ppx: lovenox 40u sc BID GI ppx: protonix 40mg daily
[2020-07-10] MEDS: CLOMIPRAMINE HCL 25 MG CAPSULE 100 MG PO (20:23)
[2020-07-10] MEDS: MELATONIN 3 MG TABLET 6 MG PO (20:23)
--- NOTE | 2020-07-10 23:01 | PC.NURSE ---
Shift Summary Overall an uneventful, stable shift. Pt weaned down to 4L HFNC from 1517 to 1624, bumped back up to 5L HFNC. PT uses bedside commode, standby assist. Becomes sinus tachycardic in the 130s and desats into the low 90s/high 80s upon activity to commode. Sat on the edge of the bed for 10 minutes with me, heart rate slowly recovered to a rate below 100, O2 sats increased to low 90s within ten minutes. Pt denies shortness of breath upon rest. pt lateral prones and understands the necessity to prone/turn onto her sides. denies headache, diarrhea today.
[2020-07-11 00:22] VITALS: BP 134/83; PULSE 69; RESP 24; TEMP 36.7; O2SAT 96
[2020-07-11 04:33] LABS: Alanine Aminotransferase 91 IU/L (<35); Albumin 3.3 g/dL (3.5-5.0); Albumin Globulin Ratio 1.1 (1.0-2.8); Alkaline Phosphatase 74 U/L (38-126); Aspartate Aminotransferase 64 IU/L (14-36); Bilirubin Total 0.3 mg/dL (0.2-1.3); Bilirubin Unconjugated 0.2 mg/dL (0.0-1.1); Blood Urea Nitrogen 13 mg/dL (7-17); Calcium 8.6 mg/dL (8.4-10.2); Carbon Dioxide 29 mmol/L (22-32); Chloride 105 mmol/L (98-107); Estimated Glomerular Filt Rate > 60.0 mL/min (>60); Globulin 3.1 g/dL (1.7-4.1); Glucose 94 mg/dL (70-100); HEMOLYSIS < 15 (0-50); Magnesium 2.1 mg/dL (1.6-2.3); Potassium 3.4 mmol/L (3.4-5.1); Sodium 140 mmol/L (137-145); Total Protein 6.4 g/dL (6.3-8.2)
[2020-07-11 04:37] VITALS: BP 108/65; BP 115/76; BP 117/70; PULSE 67; PULSE 70; PULSE 72; RESP 20; TEMP 36.7; O2SAT 95
[2020-07-11 04:39] LABS: Hemoglobin 13.6 g/dL (12.0-16.0); Mean Corpuscular HGB Conc 34.9 % (30-36); Mean Corpuscular Hemoglobin 30.5 PG (26-34); Mean Corpuscular Volume 87.3 fL (80-100); Platelet Count 375 X10^3/uL (150-400); Red Blood Cell Count 4.46 X10^6/uL (4.0-5.2); White Blood Cell Count 14.7 X10^3/uL (4.5-11.0)
[2020-07-11 04:42] LABS: Add Manual Diff / Slide Review YES
[2020-07-11] MEDS: PANTOPRAZOLE 40 MG TABLET PO (05:46)
[2020-07-11 06:07] LABS: Neutrophils Absolute Manual 9408 /uL (3000-5900); Plasma Cells 1; Total Cells Counted 100
[2020-07-11 06:08] LABS: RBC Morphology Normal Morphology
[2020-07-11] MEDS: ENOXAPARIN 40 MG/0.4 ML SYRINGE SUBCUT ×2 (08:24→21:18)
[2020-07-11] MEDS: MONTELUKAST 10 MG TABLET PO (08:24)
[2020-07-11] MEDS: DEXAMETHASONE 10 MG/ML VIAL 6 MG IV (08:24)
[2020-07-11] MEDS: SODIUM CHLORIDE 0.9% FLUSH 10 ML IV ×2 (08:24→22:35)
[2020-07-11 08:30] VITALS: BP 133/84; PULSE 76; RESP 20; TEMP 36.4; O2SAT 95
[2020-07-11 12:00] VITALS: BP 126/81; PULSE 121; RESP 14; TEMP 37.2; O2SAT 96
[2020-07-11] MEDS: REMDESIVIR 100 MG in SODIUM CHLORIDE 0.9% 230 ML 250 ML IV (13:14)
--- NOTE | 2020-07-11 13:37 | PM.PN.1 ---
Subjective Subjective Date Patient Seen: 07/11/20 Time Patient Seen: 13:37 Interval history: This morning she says she is feeling better. No fevers. Shortness of breath improved but does endorse some chest pressure with diaphoresis after ambulation to the bathroom and her HR gets into the 140s. Denies any symptoms at rest. Reports she had previous stress testing and echo less than a year ago which were normal. Diarrhea did return today. She is now down to 3L, improving slowly. Exam Vital Signs (past 8 hours): - 07/11/20 08:30 07/11/20 12:00 Temperature 97.6 F 99.0 F Pulse Rate 76 121 H Respiratory Rate 20 14 Blood Pressure 133/84 126/81 Pulse Oximetry 95 96 Fraction of Inspired Oxygen 0.38 Oxygen Delivery Method High Flow Nasal Cannula Oxygen Flow Rate 3 Narrative Exam Narrative: GEN: comfortable, no acute distress on nasal cannula. HEENT: moist mucous membranes, trachea midline EYES: PERRL. no scleral icterus. CV: tachycardic rate with regular rhythm with no murmurs PULM: coarse breath sounds bilaterally, with poor air movement GI: soft, nontender, nondistended, no organomegaly noted, normal bowel sounds SKIN: no rashes appreciated NEURO: awake and alert and oriented, moving all extremities grossly PSYCH: pleasant, but appears fatigued Objective Labs Result Diagrams: 07/11/20 04:00 07/11/20 04:00 Labs: Laboratory Results - last 24 hr 07/11/20 07/11/20 04:00 04:00 WBC 14.7 H RBC 4.46 Hgb 13.6 Hct 39.0 MCV 87.3 MCH 30.5 MCHC 34.9 RDW 13.0 Plt Count 375 Neut % (Auto) Not Reportable Lymph % (Auto) Not Reportable [place] % (Auto) Not Reportable Eos % (Auto) Not Reportable Baso % (Auto) Not Reportable Lymph # (Auto) Not Reportable [place] # (Auto) Not Reportable Baso # (Auto) Not Reportable Total Counted 100 Seg Neutrophils % 62.0 Band Neutrophils % 2.0 L Lymphocytes % (Manual) 21.0 L Monocytes % (Manual) 8.0 Metamyelocytes % 3.0 H Myelocytes % 3.0 H Neutrophils # (Manual) 9408 H Plasma Cells 1 RBC Morphology Normal morphology Sodium 140 Potassium 3.4 Chloride 105 Carbon Dioxide 29 BUN 13 Creatinine 0.52 Estimated GFR > 60.0 BUN/Creatinine Ratio 25.0 H Glucose 94 Calcium 8.6 Magnesium 2.1 Total Bilirubin 0.3 Conjugated Bilirubin 0.0 Unconjugated Bilirubin 0.2 AST 64 H ALT 91 H Alkaline Phosphatase 74 Total Protein 6.4 Albumin 3.3 L Globulin 3.1 Albumin/Globulin Ratio 1.1 [facility] Medical History (Updated 07/07/20 @ 23:16 by Judith Jeffery RN) Anxiety OCD (obsessive compulsive disorder) Patient denies medical problems Seasonal allergies Seasonal asthma Social History household members: spouse Smoking Status: Never smoker Assessment & Plan Assessment & Plan narrative: Ms. Weems is a 34-year-old woman with a past medical history of asthma and recent diagnosis of pneumonia presents with worsening shortness of breath and hypoxemia found to be in acute respiratory failure from COVID pneumonia.Improving with steroid and antiviral therapy. 1. COVID pneumonia- She is being weaned down from high flow nasal cannula, initially was fio2 0.9 at 50L and has been consistently weaned down now as low as 3L. Significant desaturations with activity though improving. Continue to target pulse ox >90%. She will be continued on daily dexamethasone and remdesivir, day 1 was 07/07. She has been self-proning with limited success. Her inflammatory markers were elevated with D-dimer, LDH, transaminitis, and CRP but started to improve, will not follow unless she appears to worsen. hep B serology labs negative. Hep C negative. - will continue dexamethasone and remdesevir until 10 days given improvement with therapy, or until no longer hypoxic, whichever is soonest. - continue symptomatic treatment. loperamide as needed for diarrhea and flonase added for nasal congestion. 2. Acute respiratory failure with hypoxemia, present on admission, improving. - secondary to COVID-19 as noted above. Continue therapy as noted above. 3. Transaminitis, improved - mild elevation in AST and ALT since admission which can be secondary to COVID 19 infection, HI, amongst other etiologies. Initially rising but improved today. May be secondary to remdesevir therapy, will stop if levels continue to rise to >5x ULN. Will continue to monitor. 4. Asthma-continue with inhalers PRN, restart montelukast 5. OCD/anxiety - restarted home clonazepam but dosing has been ineffective. Patient struggling with current hospitalization. Will raise clonazepam dosing given continued improvement to help with anxiety. 6. Morbid obesity - with BMI of 44.1, outpatient behavioral modifications. Patient's obesity puts her at higher risk for complications secondary to COVID-19 infection and higher risk for severe disease which the patient currently has. 7. Sepsis ruled out - patient with COVID 19 and acute respiratory failure, elevated SOFA score given respiratory failure however she had no dysregulated response given COVID pneumonia. 8. Tachycardia, chronic - patient with previous tachycardia prior to admission with workup including echo, stress testing all unremarkable within one year as an outpatient. Has been on propranolol, which has been held due to above respiratory failure. Will resume today. - She does endorse chest pressure with severe tachycardia, although this may due to respiratory disease. given her COVID positive status and stability and recent cardiac workup, further testing not indicated at this time. Will continue to monitor after addition of propranolol and as she begins to improve from her respiratory failure. Diet: Regular DVT ppx: lovenox 40u sc BID GI ppx: protonix 40mg daily COVID-19 COVID-19 status: Positive
[2020-07-11] MEDS: PROPRANOLOL 10 MG TABLET 20 MG PO ×2 (14:02→21:19)
[2020-07-11 14:15] LABS: Appearance Urine UA SL CLOUDY; Bilirubin Urine UA NEGATIVE (NEGATIVE); Color Urine UA YELLOW; Glucose Urine UA NEGATIVE (Negative); Ketones Urine UA NEGATIVE (NEGATIVE); Leukocyte Esterase Urine UA TRACE (NEGATIVE); Nitrite Urine UA POSITIVE (Negative); Occult Blood Urine UA 2+ (Negative); Protein Urine UA NEGATIVE (Negative); Specific Gravity Urine UA 1.015 (1.000-1.035); Urobilinogen Urine UA 0.2 E.U./dL (0.2)
[2020-07-11 14:16] LABS: pH Urine UA 6.5 (4.5-8.0)
[2020-07-11 14:24] LABS: RBC Urine 1-5/HPF (0-5/HPF); Squamous Epithelial Cell Urine 1-5 /HPF (0-5/HPF); WBC Urine 30-100/HPF (0-5/HPF)
[2020-07-11 14:25] LABS: Amorphous Sediment Urine 1+; Bacteria Urine Many (>30); Culture Indicated Urine Specimen Cultured
--- NOTE | 2020-07-11 14:38 | PC.NURSE ---
Pt is in good spirits today. She has been up to chair since breakfast. She is working on deep breathing exercises independently which has actually been helpful in maintaining O2 sats. Able to wean O2 to 2L high flow NC. Resting SPO2 96-97%. Pt able to walk to and from BR. SPO2 briefly drops to 86-88% but pt is able to recover after resting for 2 minutes and deep breathing. She is motivated to go home. She did c/o mild CP this AM returning to chair from bathroom. Quickly resolved in less than one minute of rest. HR at that time 144. HR has been elevated 120s-130s ST since getting OOB for breakfast. Hospitalist rounded and restarted home dose of propanolol. Pt states her normal resting HR is about 115. Also reported some discomfort with urination. Urine is cloudy yellow/orange. Encouraged PO intake. UA sent per order. Discussed results with hospitalist.
[2020-07-11] MEDS: CEFDINIR 300 MG CAPSULE PO ×2 (15:38→21:19)
[2020-07-11 15:51] VITALS: BP 115/72; PULSE 84; RESP 20; TEMP 36.9; O2SAT 92
[2020-07-11 19:00] VITALS: BP 115/69; PULSE 88; RESP 20; TEMP 36.7; O2SAT 96
[2020-07-11] MEDS: CLOMIPRAMINE HCL 25 MG CAPSULE 100 MG PO (21:19)
[2020-07-11] MEDS: MELATONIN 3 MG TABLET 6 MG PO (21:19)
[2020-07-11] MEDS: BENZOCAINE/MENTHOL 1 LOZ PKT 1 EACH PO (21:57)
[2020-07-12] VITALS (11 sets, daily range): BP systolic 111–123; BP diastolic 66–78; PULSE 64–109; RESP 17–20; TEMP 36.1–36.9; O2SAT 92–97
[2020-07-12 05:19] LABS: Hematocrit 39.6 % (36-46); Hemoglobin 13.3 g/dL (12.0-16.0); Mean Corpuscular HGB Conc 33.6 % (30-36); Mean Corpuscular Hemoglobin 29.1 PG (26-34); Mean Corpuscular Volume 86.6 fL (80-100); Platelet Count 402 X10^3/uL (150-400); Red Blood Cell Count 4.58 X10^6/uL (4.0-5.2); White Blood Cell Count 16.1 X10^3/uL (4.5-11.0)
[2020-07-12 05:20] LABS: Alanine Aminotransferase 98 IU/L (<35); Albumin 3.4 g/dL (3.5-5.0); Albumin Globulin Ratio 1.1 (1.0-2.8); Alkaline Phosphatase 72 U/L (38-126); Aspartate Aminotransferase 63 IU/L (14-36); BUN Creatinine Ratio 16.4 (6-22); Bilirubin Total 0.3 mg/dL (0.2-1.3); Bilirubin Unconjugated 0.2 mg/dL (0.0-1.1); Blood Urea Nitrogen 9 mg/dL (7-17); Calcium 8.6 mg/dL (8.4-10.2); Carbon Dioxide 30 mmol/L (22-32); Chloride 103 mmol/L (98-107); Estimated Glomerular Filt Rate > 60.0 mL/min (>60); Glucose 94 mg/dL (70-100); HEMOLYSIS < 15 (0-50); Magnesium 2.2 mg/dL (1.6-2.3); Potassium 3.8 mmol/L (3.4-5.1); Sodium 138 mmol/L (137-145); Total Protein 6.4 g/dL (6.3-8.2)
[2020-07-12 05:21] LABS: Add Manual Diff / Slide Review YES
[2020-07-12 05:52] LABS: Procalcitonin 0.05 ng/mL (<0.5)
[2020-07-12] MEDS: PANTOPRAZOLE 40 MG TABLET PO (06:15)
--- NOTE | 2020-07-12 06:25 | PC.NURSE ---
Agitator Operator Note-Patient slept throughout the night with 2L HFNC, SpO2 mid 90s, desats to 88% when up to BSC, recovers quickly. SR 60s while asleep, up to 100 when OOB. Minimal cough, denies dyspnea, or pain. Proned for about 2 hours, otherwise slept on Lt side or back.
[2020-07-12 06:28] LABS: Neutrophils Absolute Manual 9660 /uL (3000-5900); Plasma Cells 2; Total Cells Counted 100
[2020-07-12 06:29] LABS: RBC Morphology Normal Morphology
[2020-07-12] MEDS: DEXAMETHASONE 10 MG/ML VIAL 6 MG IV (09:35)
[2020-07-12] MEDS: CEFDINIR 300 MG CAPSULE PO ×2 (09:35→20:28)
[2020-07-12] MEDS: MONTELUKAST 10 MG TABLET PO (09:35)
[2020-07-12] MEDS: ENOXAPARIN 40 MG/0.4 ML SYRINGE SUBCUT ×2 (09:35→20:29)
[2020-07-12] MEDS: PROPRANOLOL 10 MG TABLET 20 MG PO ×2 (09:35→20:29)
[2020-07-12] MEDS: SODIUM CHLORIDE 0.9% FLUSH 10 ML IV ×2 (09:35→20:30)
[2020-07-12] MEDS: LOPERAMIDE 2 MG CAPSULE PO (09:53)
--- NOTE | 2020-07-12 12:04 | PM.PN.1 ---
Subjective Subjective Date Patient Seen: 07/12/20 Time Patient Seen: 08:04 Interval history: She states she is feeling much improved today. She doesn't have a racing heart, she has much improved shortness of breath, more energy, less cough. Still having intermittent diarrhea. Exam Vital Signs (past 8 hours): - 07/12/20 04:38 07/12/20 08:00 07/12/20 08:28 Temperature 98.4 F Pulse Rate 64 109 H Respiratory Rate 19 Blood Pressure 120/78 Pulse Oximetry 96 92 93 07/12/20 09:56 Temperature Pulse Rate Respiratory Rate Blood Pressure Pulse Oximetry 93 Fraction of Inspired Oxygen 0.38 Oxygen Delivery Method Room Air Oxygen Flow Rate 0 Narrative Exam Narrative: GEN: comfortable, no acute distress on nasal cannula. HEENT: moist mucous membranes, trachea midline EYES: PERRL. no scleral icterus. CV: tachycardic rate with regular rhythm with no murmurs PULM: coarse breath sounds bilaterally GI: soft, nontender, nondistended, no organomegaly noted, normal bowel sounds SKIN: no rashes appreciated NEURO: awake and alert and oriented, moving all extremities grossly PSYCH: pleasant Objective Labs Result Diagrams: 07/12/20 04:35 07/12/20 04:35 Labs: Laboratory Results - last 24 hr 07/11/20 07/12/20 07/12/20 13:45 04:35 04:35 WBC 16.1 H RBC 4.58 Hgb 13.3 Hct 39.6 MCV 86.6 MCH 29.1 MCHC 33.6 RDW 13.0 Plt Count 402 H Neut % (Auto) Not Reportable Lymph % (Auto) Not Reportable [place] % (Auto) Not Reportable Eos % (Auto) Not Reportable Baso % (Auto) Not Reportable Lymph # (Auto) Not Reportable [place] # (Auto) Not Reportable Baso # (Auto) Not Reportable Total Counted 100 Seg Neutrophils % 60.0 Lymphocytes % (Manual) 19.0 L Monocytes % (Manual) 3.0 Eosinophils % (Manual) 1.0 L Metamyelocytes % 5.0 H Myelocytes % 10.0 H Neutrophils # (Manual) 9660 H Plasma Cells 2 RBC Morphology Normal morphology Sodium 138 Potassium 3.8 Chloride 103 Carbon Dioxide 30 BUN 9 Creatinine 0.55 Estimated GFR > 60.0 BUN/Creatinine Ratio 16.4 Glucose 94 Calcium 8.6 Magnesium 2.2 Total Bilirubin 0.3 Conjugated Bilirubin 0.0 Unconjugated Bilirubin 0.2 AST 63 H ALT 98 H Alkaline Phosphatase 72 Total Protein 6.4 Albumin 3.4 L Globulin 3.0 Albumin/Globulin Ratio 1.1 Procalcitonin Urine Color Yellow Urine Appearance Sl cloudy Urine pH 6.5 Ur Specific [place] 1.015 Urine Protein Negative Urine Glucose (UA) Negative Urine Ketones Negative Urine Occult Blood 2+ H Urine Nitrate Positive H Urine Bilirubin Negative Urine Urobilinogen 0.2 Ur Leukocyte Esterase Trace H Urine RBC 1-5/hpf Urine WBC 30-100/hpf H Ur Squamous Epith Cells 1-5 /hpf Amorphous Sediment 1+ Urine Bacteria Many (>30) H Ur Culture Indicated? Specimen cultured 07/12/20 04:35 WBC RBC Hgb Hct MCV MCH MCHC RDW Plt Count Neut % (Auto) Lymph % (Auto) [place] % (Auto) Eos % (Auto) Baso % (Auto) Lymph # (Auto) [place] # (Auto) Baso # (Auto) Total Counted Seg Neutrophils % Lymphocytes % (Manual) Monocytes % (Manual) Eosinophils % (Manual) Metamyelocytes % Myelocytes % Neutrophils # (Manual) Plasma Cells RBC Morphology Sodium Potassium Chloride Carbon Dioxide BUN Creatinine Estimated GFR BUN/Creatinine Ratio Glucose Calcium Magnesium Total Bilirubin Conjugated Bilirubin Unconjugated Bilirubin AST ALT Alkaline Phosphatase Total Protein Albumin Globulin Albumin/Globulin Ratio Procalcitonin 0.05 Urine Color Urine Appearance Urine pH Ur Specific [place] Urine Protein Urine Glucose (UA) Urine Ketones Urine Occult Blood Urine Nitrate Urine Bilirubin Urine Urobilinogen Ur Leukocyte Esterase Urine RBC Urine WBC Ur Squamous Epith Cells Amorphous Sediment Urine Bacteria Ur Culture Indicated? [facility] Medical History (Updated 07/07/20 @ 23:16 by Judith Jeffery RN) Anxiety OCD (obsessive compulsive disorder) Patient denies medical problems Seasonal allergies Seasonal asthma Social History household members: spouse Smoking Status: Never smoker Assessment & Plan Assessment & Plan narrative: 1. COVID pneumonia- She is being weaned down from high flow nasal cannula, initially was fio2 0.9 at 50L and has been consistently weaned down now as low as 2L. Significant desaturations with activity though improving. Continue to target pulse ox >90%. She will be continued on daily dexamethasone and remdesivir, day 1 was 07/07. She has been self-proning with limited success. Her inflammatory markers were elevated with D-dimer, LDH, transaminitis, and CRP but started to improve, will not follow unless she appears to worsen. hep B serology labs negative. Hep C negative. - will continue dexamethasone for 10 days, per IDSA guidelines recommend 5 days of remdeseiver for patients who are not mechanically ventilated - continue symptomatic treatment. loperamide as needed for diarrhea and flonase added for nasal congestion. 2. Acute respiratory failure with hypoxemia, present on admission, improving. - secondary to COVID-19 as noted above. Continue therapy as noted above. 3. Transaminitis, improved - mild elevation in AST and ALT since admission which can be secondary to COVID 19 infection, HI, amongst other etiologies. Initially rising but improved today. May be secondary to remdesevir therapy, will stop if levels continue to rise to >5x ULN. Will continue to monitor. 4. Asthma-continue with inhalers PRN, restart montelukast 5. OCD/anxiety - restarted home clonazepam but dosing has been ineffective. Patient struggling with current hospitalization. Will raise clonazepam dosing given continued improvement to help with anxiety. 6. Morbid obesity - with BMI of 44.1, outpatient behavioral modifications. Patient's obesity puts her at higher risk for complications secondary to COVID-19 infection and higher risk for severe disease which the patient currently has. 7. Sepsis ruled out - patient with COVID 19 and acute respiratory failure, elevated SOFA score given respiratory failure however she had no dysregulated response given COVID pneumonia. 8. Tachycardia, chronic - patient with previous tachycardia prior to admission with workup including echo, stress testing all unremarkable within one year as an outpatient. Has been on propranolol, which has been held due to above respiratory failure. Will resume today. - She does endorse chest pressure with severe tachycardia, although this may due to respiratory disease. given her COVID positive status and stability and recent cardiac workup, further testing not indicated at this time. Will continue to monitor after addition of propranolol and as she begins to improve from her respiratory failure. 9. Leukocytosis - no worsening infectious sypmtoms, she does have unremarkable procalcitonin, etiology of leukocytosis is likely dexamethasone, however also has positive UA, so continue abx 10. UTI -await final cultures, continue abx for now Diet: Regular DVT ppx: lovenox 40u sc BID GI ppx: protonix 40mg daily
--- NOTE | 2020-07-12 15:35 | CM.DPC ---
DCP Cont: Discussed patient during team rounds. She continues to improve on oxygenation, down to 2 liters. Goal is to get her off of her oxygen at discharge. It is also noted that ALEXIS Giron Sales Planning Analyst, called patient from room, and confirmed that the plan is for her to go back to [place] with her spouse, as they both came here to visit her sister. p: DCP to continue to follow and will be available for any needs. Plan is for home when stable. Hallie Mendoza RN/Fraternity Adviser
[2020-07-12] MEDS: CLOMIPRAMINE HCL 25 MG CAPSULE 100 MG PO (20:29)
[2020-07-12] MEDS: MELATONIN 3 MG TABLET 6 MG PO (20:29)
--- NOTE | 2020-07-12 22:26 | PC.NURSE ---
Pt has remained on Room air throughout this shift without shortness of breath. O2 Sats >90%. Denies pain or discomfort.
[2020-07-13] MEDS: PANTOPRAZOLE 40 MG TABLET PO (05:26)
[2020-07-13 05:45] VITALS: BP 132/83; PULSE 69; RESP 20; TEMP 36.9; O2SAT 91
[2020-07-13 05:51] LABS: Hematocrit 41.4 % (36-46); Hemoglobin 13.9 g/dL (12.0-16.0); Mean Corpuscular HGB Conc 33.7 % (30-36); Mean Corpuscular Hemoglobin 29.4 PG (26-34); Mean Corpuscular Volume 87.3 fL (80-100); Platelet Count 459 X10^3/uL (150-400); Red Blood Cell Count 4.74 X10^6/uL (4.0-5.2); Red Cell Distribution Width 13.3 % (11.6-14.8); White Blood Cell Count 16.4 X10^3/uL (4.5-11.0)
[2020-07-13 05:58] LABS: Alanine Aminotransferase 77 IU/L (<35); Albumin 3.6 g/dL (3.5-5.0); Albumin Globulin Ratio 1.1 (1.0-2.8); Alkaline Phosphatase 75 U/L (38-126); Aspartate Aminotransferase 37 IU/L (14-36); BUN Creatinine Ratio 20.4 (6-22); Bilirubin Total 0.3 mg/dL (0.2-1.3); Bilirubin Unconjugated 0.3 mg/dL (0.0-1.1); Blood Urea Nitrogen 10 mg/dL (7-17); Calcium 8.8 mg/dL (8.4-10.2); Carbon Dioxide 30 mmol/L (22-32); Chloride 102 mmol/L (98-107); Estimated Glomerular Filt Rate > 60.0 mL/min (>60); Globulin 3.3 g/dL (1.7-4.1); Glucose 96 mg/dL (70-100); HEMOLYSIS 15 (0-50); Potassium 4.4 mmol/L (3.4-5.1); Sodium 139 mmol/L (137-145); Total Protein 6.9 g/dL (6.3-8.2)
--- NOTE | 2020-07-13 06:07 | PC.NURSE ---
Direct Sales Professional Note-Allowed patient to sleep throughout the night uninterrupted, she is on continuous pulse-ox, SpO2 90% or > while asleep, she slept either semi-prone or side lying mostly to left. In am, she woke at 0545, labs drawn, ambulated to BR steadily and independent, denies shortness of breath, RR 20, no tachycardia, SpO2 86% when back to bed, recovered to >90% quickly. VSS.
[2020-07-13 08:00] VITALS: BP 130/81; PULSE 84; RESP 16; TEMP 36.8; O2SAT 94
[2020-07-13 09:00] VITALS: PULSE 103; RESP 22; O2SAT 93
[2020-07-13] MEDS: ENOXAPARIN 40 MG/0.4 ML SYRINGE SUBCUT (09:21)
[2020-07-13] MEDS: CEFDINIR 300 MG CAPSULE PO (09:22)
[2020-07-13] MEDS: DEXAMETHASONE 10 MG/ML VIAL 6 MG IV (09:25)
[2020-07-13] MEDS: MONTELUKAST 10 MG TABLET PO (09:26)
[2020-07-13] MEDS: PROPRANOLOL 10 MG TABLET 20 MG PO (09:26)
[2020-07-13] MEDS: SODIUM CHLORIDE 0.9% FLUSH 10 ML IV (09:26)
--- NOTE | 2020-07-13 20:19 | PM.DS.1 ---
History of Present Illness History of Present Illness Chief complaint: SOB, COVID + Narrative: Ms. Weems is a 34 year old woman with PMH of asthma who presents with hypoxemia and shortness of breath. She has a known positive COVID patient who was diagnosed on July 02, 2020 at [facility]. She is visiting from [place] to visit her sister. She had the test done because she was having a fever to 101 and a cough. She presented to the emergency room on July 05 when she was experiencing chest discomfort and a cough. Her oxygen level was within normal limits and she was discharged home. However she was checking her oxygen at home on a pulse ox and was significantly lower in the 80s. She was also noticing worsening shortness of breath and extreme fatigue. She denies any loss of taste or smell. She has been having diarrhea. She has some slight amount of sputum production. He is not having vomiting. She is not having any muscle aches. She is not having any chest pain. She had been taking Tessalon Perles and codeine for her cough at home. The emergency room workup was done she was initially noted to be febrile to a temperature of a 100.5? heart rate was in the 120s, respiratory rate was in the low 30s, blood pressure was in the 120s over 60s, and sats were initially in the 70s. She was put on oxygen and was desatting still on nasal cannula so was placed on high-flow nasal cannula. Imaging was consistent with a pneumonia. Labs were done and were notable for a white count of 10.4, 83% neutrophils and 13.7% lymphs, D-dimer was 655, procalcitonin 0.09, sodium 135 creatinine 0.47, lactate 2.3, AST 91 ALT 48, LDH 1816, CK 51, troponin less than assay, CRP 18.7, and her initial ABG was done on 7 L nasal cannula showed a pH is 7.49 PaO2 of 70 bicarb 26 CO2 of 27. She was initially placed on 100% FiO2 and 50 L, this was able to be weaned down in the ER to 80%. She was ordered for dexamethasone and remdesivir she is admitted for 3 further treatment and evaluation Discharge Providers Provider Date of admission: 07/07/20 14:23 Discharge Date: 07/13/20 Discharge provider: Teddy Hicks MD Summary Hospital Course Discharge Diagnosis: 1. Acute respiratory failure with hypoxemia secondary to COVID pneumonia 2. Asthma 3. OCD/anxiety 4. Morbid obesity 5. Tachycardia, chronic 6. UTI Hospital Course: Ms. Weems is a 34W with PMH asthma, and obesity who came in with worsening shortness of breath, cough. She had been diagnosed with COVID prior to admission and had worsened prior to coming to the hospital. In the hospital she was noted to have a significant hypoxemia requiring high flow nasal cannula for destauration below 90%. She was noted to have elevated inflammatory markers with D-dimer, LDH, transaminitis, and CRP. She had a mild transaminitis with negative Hep B and Hep C viral serologies. She was started on remdesivir and dexamethasone. She received a five day course of remdesivir. On day of discharge her respiratory status was much improved. She was tolerating being off oxygen, ambulating with only minimal shortness of breath. She did receive 7 days of dexamethasone and did not need any further treatment as an outpatient. She was also diagnosed with a UTI and was sent with a script for oral antibiotics to complete a five day course of treatment. She did have mild tachycardia in the hospital which is chronic for her and improved with resumption of propanolol. The rest of her medical issues remained stable in the hospital. Code Status: Full code Discharge Time: 35 minutes Status at Discharge Cognitive/behavioral status at discharge: oriented Functional status at discharge: independent ambulation Overall status at discharge: patient is progressing back to baseline Time Spent with Patient Time spent: Greater than 30 minutes Exam Vital Signs (past 8 hours): Fraction of Inspired Oxygen 0.38 Oxygen Delivery Method Room Air Oxygen Flow Rate 0 Narrative Exam Narrative: GEN: comfortable, no acute distress on nasal cannula. HEENT: moist mucous membranes, trachea midline EYES: PERRL. no scleral icterus. CV: tachycardic rate with regular rhythm with no murmurs PULM: coarse breath sounds bilaterally GI: soft, nontender, nondistended, no organomegaly noted, normal bowel sounds SKIN: no rashes appreciated NEURO: awake and alert and oriented, moving all extremities grossly PSYCH: pleasant Objective Labs Result Diagrams: 07/13/20 05:30 07/13/20 05:30 Labs: Laboratory Results - last 24 hr 07/13/20 07/13/20 05:30 05:30 WBC 16.4 H RBC 4.74 Hgb 13.9 Hct 41.4 MCV 87.3 MCH 29.4 MCHC 33.7 RDW 13.3 Plt Count 459 H Sodium 139 Potassium 4.4 Chloride 102 Carbon Dioxide 30 BUN 10 Creatinine 0.49 L Estimated GFR > 60.0 BUN/Creatinine Ratio 20.4 Glucose 96 Calcium 8.8 Total Bilirubin 0.3 Conjugated Bilirubin 0.0 Unconjugated Bilirubin 0.3 AST 37 H ALT 77 H Alkaline Phosphatase 75 Total Protein 6.9 Albumin 3.6 Globulin 3.3 Albumin/Globulin Ratio 1.1 [facility] Medical History (Updated 07/07/20 @ 23:16 by Judith Jeffery RN) Anxiety OCD (obsessive compulsive disorder) Patient denies medical problems Seasonal allergies Seasonal asthma Social History household members: spouse Smoking Status: Never smoker Discharge Plan Discharge Plan Patient Disposition: Home Provider Discharge Comment: Ms. Weems was admitted with shortness of breath and low oxygen levels. Testing confirmed that she had COVID pneumonia. Initially she was requiring high levels of oxygen. She was started on remdesivir, for which she got a five day course of treatment. She also was started on dexamethasone, for which she received 7 days of treatment. On day of discharge she was feeling greatly improved. She was no longer requiring oxygen, she had no fever. She had mild shortness of breath with activity. She was recommended to keep in isolation for another week which will be 18 days since initial symptom onset. She was also diagnosed with a UTI, and will be given a prescription for 3 more days of antibiotics to complete a course of treatment. Discharge orders & Medications Prescriptions: New cefdinir 300 mg Capsule 300 mg PO BID Qty: 6 RF: 0 Continued promethazine-codeine 6.25-10 mg/5 mL syrup 5 ml PO Q4-6H PRN (Reason: cough) Qty: 473 RF: 0 benzonatate [Tessalon Perles] 100 mg capsule 100 mg PO TID PRN (Reason: cough) Qty: 14 RF: 0 clomipramine 25 mg capsule 100 mg PO DAILY RF: 0 zolpidem 12.5 mg tablet,ext release multiphase 12.5 mg PO PRN PRN (Reason: sleep) RF: 0 clonazepam 0.5 mg Tablet 0.5 mg PO BID RF: 0 propranolol 20 mg Tablet 20 mg PO BID RF: 0 omeprazole 40 mg Capsule,Delayed Release(Dr/Ec) 40 mg PO DAILY RF: 0 montelukast [Singulair] 10 mg Tablet 10 mg PO DAILY RF: 0 fexofenadine 180 mg Tablet 180 mg PO DAILY RF: 0 Discharge Health Status Multidrug resistant organism: No MDRO Diet/Activity/Treatments Diet: Diet as Tolerated Activity: return to normal activity as able to tolerate, please isolate for another week to make sure you are no longer infectious Skin/Wound/Dressing Care Report to your healthcare provider any signs of infection, such as:: chills, fever and night sweats Visit Report/Discharge Packet Instructions: DI for Urinary Tract Infection (UTI), Cefdinir, DI for COVID-19 (Suspected or Confirmed )
== END 2020-07-13 11:00 | disposition home or self-care (01) | DRG 177 ==
LOC: ED 14:11 → AC 14:24 → ICU 07-08 09:53
PROVIDERS: Internal Medicine; Nurse Practitioner Adult Health; Admitting Provider Internal Medicine; Emergency Provider Emergency Medicine; Referring Provider Emergency Medicine; Visit Provider Internal Medicine
DX: U07.1 COVID-19 (principal); J12.82 Pneumonia due to coronavirus disease 2019; J96.01 Acute respiratory failure with hypoxia; Z68.41 Body mass index [BMI] 40.0-44.9, adult; N39.0 Urinary tract infection, site not specified; J45.909 Unspecified asthma, uncomplicated; E66.01 Morbid (severe) obesity due to excess calories; R00.0 Tachycardia, unspecified; F41.9 Anxiety disorder, unspecified; F42.9 Obsessive-compulsive disorder, unspecified; R74.01 Elevation of levels of liver transaminase levels
CPT/HCPCS: 36415; 36600; 71045; 71275; 80048; 80053; 80076; 81001; 82550; 82728; 82805; 82962; 83605; 83615; 83735; 83880; 84100; 84145; 84484; 84703; 85007; 85025; 85027; 85379; 85384; 85610; 85730; 86140; 86704; 86706; 86803; 87077; 87086; 87186; 87340; 87633; 87635; 87797; 93005; 93010; 94150; 94760; 94762; 96365; 96375; 99285; 99291; 99292; C9803; A9270; C9113; J1100; J1650; Q9967